=== PATIENT | male | born 1980 | race Caucasian/White ===

== ENCOUNTER 2017-10-08 05:27 | Inpatient (IN) | payer MEDICAID ==
--- NOTE | 2017-10-08 05:38 | EDM.PDOC ---
<Jonathan Woodard - Last Filed: 10/08/17 06:55> ED HPI GENERAL MEDICAL PROBLEM - General Chief Complaint: Lower Extremity Injury/Pain Stated Complaint: [facility] Time Seen by Provider: 10/08/17 05:37 - History of Present Illness INITIAL COMMENTS - FREE TEXT/NARRATIVE: 36-year-old male presents emergency room via EMS not feeling right. He has had a fever that developed this evening. This started after drinking some water the patient works as a DJ and wonders if something was added to his glass of water because immediately after drinking the water he started feeling unusual. Initially he hinted that he had not been feeling well with some flulike symptoms for the last couple of weeks but with further clarification he changes this to the abrupt onset stated above. The patient has a headache neck pain generally achy all over he gets intermittent bouts of cellulitis in his left lower leg this is mildly erythematous and swelling little bit. Patient is a poorly controlled type II diabetic. Left Leg Pain Score (Numeric/FACES): 8 - Related Data Allergies Allergy/AdvReac Type Severity Reaction Status Date / Time oxymetazoline Allergy Hives Verified 10/08/17 05:38 [From Afrin (oxymetazoline)] Review of Systems - Review of Systems Review Of Systems: See Below Constitutional: Reports: Chills, Fever Eyes: Reports: No Symptoms Ears: Reports: No Symptoms Nose: Reports: No Symptoms Mouth/Throat: Reports: No Symptoms Respiratory: Reports: No Symptoms Cardiovascular: Reports: No Symptoms GI/Abdominal: Reports: Nausea Genitourinary: Denies: Dysuria, Hematuria, Painful Urination Musculoskeletal: Reports: Neck Pain. Denies: Foot Pain, Joint Swelling Skin: Reports: Rash (Patient has psoriasis in the has had a several week outbreak on his right hand dorsal aspect) Neurological: Reports: Headache Psychiatric: Reports: Confusion ED EXAM, GENERAL - Physical Exam Exam: See Below Exam Limited By: No Limitations General Appearance: Alert, No Apparent Distress Eye Exam: Bilateral Eye: Normal Inspection Ears: Normal External Exam, Normal Canal, Hearing Grossly Normal Nose: Normal Inspection, Normal Mucosa, No Blood Throat/Mouth: Normal Inspection, Normal Lips, Normal Oropharynx Head: Atraumatic, Normocephalic Neck: Normal Inspection, Supple, Non-Tender, Full Range of Motion, Other (No nuchal rigidity complains of neck pain however) Respiratory/Chest: No Respiratory Distress, Lungs Clear, Normal Breath Sounds, No Accessory Muscle Use Cardiovascular: Normal Peripheral Pulses, Regular Rate, Rhythm, No Murmur GI/Abdominal: Normal Bowel Sounds, Soft, Non-Tender, Other (Morbid obesity) Back Exam: CVA Tenderness (L). No: Normal Inspection, CVA Tenderness (R) Extremities: Other (Lower leg swelling left greater than right) Neurological: Alert, Oriented, Normal Cognition Psychiatric: Normal Affect, Normal Mood Skin Exam: Warm, Dry, Intact, Other (Mild to moderate erythema left lower leg anterior lateral aspect mild warmth associated with this) Lymphatic: No Adenopathy Course - Vital Signs Last Recorded V/S: Last Vital Signs Temp 101.4 F H 10/08/17 08:25 Pulse 114 H 10/08/17 05:32 Resp 18 10/08/17 05:32 BP 121/88 10/08/17 05:32 Pulse Ox 93 L 10/08/17 05:32 - Orders/Labs/Meds Orders: Active Orders 24 hr Category Date Time Status EKG Documentation Completion [RC] STAT Care 10/08/17 05:38 Active Chest 1V Frontal [CR] Stat Exams 10/08/17 05:45 Taken CULTURE BLOOD [BC] Stat Lab 10/08/17 06:35 Received CULTURE BLOOD [BC] Stat Lab 10/08/17 06:50 Received DRUG SCREEN, URINE [URCHEM] Stat Lab 10/08/17 07:14 Ordered Sodium Chloride 0.9% [Normal Saline] 1,000 ml Med 10/08/17 08:12 Active IV ONETIME Sodium Chloride 0.9% [Normal Saline] 4,300 ml Med 10/08/17 08:27 Active IV ONETIME Vancomycin 2 gm Med 10/08/17 08:30 Active Sodium Chloride 0.9% [Normal Saline] 500 ml IV ONETIME Blood Culture x2 Reflex Set [OM.PC] Stat Oth 10/08/17 05:38 Ordered Medication Orders Sodium Chloride (Normal Saline) 1,000 mls @ 1,000 mls/hr IV ONETIME ONE Stop: 10/08/17 09:11 Last Admin: 10/08/17 08:24 Dose: 1,000 mls/hr Vancomycin HCl 2 gm/ Sodium (Chloride) 500 mls @ 250 mls/hr IV ONETIME ONE Stop: 10/08/17 10:29 Last Admin: 10/08/17 08:29 Dose: 250 mls/hr Sodium Chloride (Normal Saline) 4,300 mls @ 1,000 mls/hr IV ONETIME ONE Stop: 10/08/17 12:44 Labs: Laboratory Tests 10/08/17 10/08/17 10/08/17 Range/Units 06:35 06:35 06:35 WBC 21.31 H (4.23-9.07) K/mm3 RBC 4.83 (4.63-6.08) M/mm3 Hgb 13.8 (13.7-17.5) gm/L Hct 40.3 (40.1-51.0) % MCV 83.4 (79.0-92.2) fl MCH 28.6 (25.7-32.2) pg MCHC 34.2 (32.2-35.5) g/dl RDW Std Deviation 40.6 (35.1-43.9) fL Plt Count 200 (163-337) K/mm3 MPV 10.6 (9.4-12.3) fl Neutrophils % (Manual) 88 H (40-60) % Band Neutrophils % 0 (0-10) % Lymphocytes % (Manual) 6 L (20-40) % Atypical Lymphs % 0 % Monocytes % (Manual) 6 (2-10) % Eosinophils % (Manual) 0 L (0.8-7.0) % Basophils % (Manual) 0 L (0.2-1.2) Platelet Estimate Adequate Plt Morphology Comment Normal Polychromasia 1+ slight Stomatocytes 2+ moderate RBC Morph Comment Not Reportable PT 11.3 (9.5-12.1) SECONDS INR 1.04 APTT 27 (24-31) SECONDS D-Dimer, Quantitative (0.19-0.50) mg/L Sodium 132 L (136-145) mEq/L Potassium 3.2 L (3.5-5.1) mEq/L Chloride 97 L (98-107) mEq/L Carbon Dioxide 21 (21-32) mEq/L Anion Gap 17.2 H (5-15) BUN 11 (7-18) mg/dL Creatinine 1.2 (0.7-1.3) mg/dL Est Cr Clr Drug Dosing TNP Estimated GFR (MDRD) > 60 (>60) mL/min BUN/Creatinine Ratio 9.2 L (14-18) Glucose 280 H (74-106) mg/dL Lactic Acid (0.4-2.0) mmol/L Calcium 8.7 (8.5-10.1) mg/dL Total Bilirubin 1.2 H (0.2-1.0) mg/dL AST 24 (15-37) U/L ALT 43 (16-63) U/L Alkaline Phosphatase 49 (46-116) U/L Total Protein 7.2 (6.4-8.2) g/dl Albumin 3.1 L (3.4-5.0) g/dl Globulin 4.1 gm/dL Albumin/Globulin Ratio 0.8 L (1-2) Urine Opiates Screen (NEGATIVE) Ur Buprenorphine Scrn (NEGATIVE) Ur Oxycodone Screen (NEGATIVE) Urine Methadone Screen (NEGATIVE) Ur Propoxyphene Screen (NEGATIVE) Ur Barbiturates Screen (NEGATIVE) Ur Tricyclics Screen (NEGATIVE) Ur Phencyclidine Scrn (NEGATIVE) Ur Amphetamine Screen (NEGATIVE) U Methamphetamines Scrn (NEGATIVE) U Benzodiazepines Scrn (NEGATIVE) U Cocaine Metab Screen (NEGATIVE) U Marijuana (THC) Screen (NEGATIVE) Ethyl Alcohol (0.00) gm% 10/08/17 10/08/17 10/08/17 Range/Units 06:35 06:35 06:35 WBC (4.23-9.07) K/mm3 RBC (4.63-6.08) M/mm3 Hgb (13.7-17.5) gm/L Hct (40.1-51.0) % MCV (79.0-92.2) fl MCH (25.7-32.2) pg MCHC (32.2-35.5) g/dl RDW Std Deviation (35.1-43.9) fL Plt Count (163-337) K/mm3 MPV (9.4-12.3) fl Neutrophils % (Manual) (40-60) % Band Neutrophils % (0-10) % Lymphocytes % (Manual) (20-40) % Atypical Lymphs % % Monocytes % (Manual) (2-10) % Eosinophils % (Manual) (0.8-7.0) % Basophils % (Manual) (0.2-1.2) Platelet Estimate Plt Morphology Comment Polychromasia Stomatocytes RBC Morph Comment PT (9.5-12.1) SECONDS INR APTT (24-31) SECONDS D-Dimer, Quantitative 0.49 (0.19-0.50) mg/L Sodium (136-145) mEq/L Potassium (3.5-5.1) mEq/L Chloride (98-107) mEq/L Carbon Dioxide (21-32) mEq/L Anion Gap (5-15) BUN (7-18) mg/dL Creatinine (0.7-1.3) mg/dL Est Cr Clr Drug Dosing Estimated GFR (MDRD) (>60) mL/min BUN/Creatinine Ratio (14-18) Glucose (74-106) mg/dL Lactic Acid 2.9 H (0.4-2.0) mmol/L Calcium (8.5-10.1) mg/dL Total Bilirubin (0.2-1.0) mg/dL AST (15-37) U/L ALT (16-63) U/L Alkaline Phosphatase (46-116) U/L Total Protein (6.4-8.2) g/dl Albumin (3.4-5.0) g/dl Globulin gm/dL Albumin/Globulin Ratio (1-2) Urine Opiates Screen (NEGATIVE) Ur Buprenorphine Scrn (NEGATIVE) Ur Oxycodone Screen (NEGATIVE) Urine Methadone Screen (NEGATIVE) Ur Propoxyphene Screen (NEGATIVE) Ur Barbiturates Screen (NEGATIVE) Ur Tricyclics Screen (NEGATIVE) Ur Phencyclidine Scrn (NEGATIVE) Ur Amphetamine Screen (NEGATIVE) U Methamphetamines Scrn (NEGATIVE) U Benzodiazepines Scrn (NEGATIVE) U Cocaine Metab Screen (NEGATIVE) U Marijuana (THC) Screen (NEGATIVE) Ethyl Alcohol 0.00 (0.00) gm% 10/08/17 Range/Units 07:14 WBC (4.23-9.07) K/mm3 RBC (4.63-6.08) M/mm3 Hgb (13.7-17.5) gm/L Hct (40.1-51.0) % MCV (79.0-92.2) fl MCH (25.7-32.2) pg MCHC (32.2-35.5) g/dl RDW Std Deviation (35.1-43.9) fL Plt Count (163-337) K/mm3 MPV (9.4-12.3) fl Neutrophils % (Manual) (40-60) % Band Neutrophils % (0-10) % Lymphocytes % (Manual) (20-40) % Atypical Lymphs % % Monocytes % (Manual) (2-10) % Eosinophils % (Manual) (0.8-7.0) % Basophils % (Manual) (0.2-1.2) Platelet Estimate Plt Morphology Comment Polychromasia Stomatocytes RBC Morph Comment PT (9.5-12.1) SECONDS INR APTT (24-31) SECONDS D-Dimer, Quantitative (0.19-0.50) mg/L Sodium (136-145) mEq/L Potassium (3.5-5.1) mEq/L Chloride (98-107) mEq/L Carbon Dioxide (21-32) mEq/L Anion Gap (5-15) BUN (7-18) mg/dL Creatinine (0.7-1.3) mg/dL Est Cr Clr Drug Dosing Estimated GFR (MDRD) (>60) mL/min BUN/Creatinine Ratio (14-18) Glucose (74-106) mg/dL Lactic Acid (0.4-2.0) mmol/L Calcium (8.5-10.1) mg/dL Total Bilirubin (0.2-1.0) mg/dL AST (15-37) U/L ALT (16-63) U/L Alkaline Phosphatase (46-116) U/L Total Protein (6.4-8.2) g/dl Albumin (3.4-5.0) g/dl Globulin gm/dL Albumin/Globulin Ratio (1-2) Urine Opiates Screen Presumptive positive H (NEGATIVE) Ur Buprenorphine Scrn Negative (NEGATIVE) Ur Oxycodone Screen Negative (NEGATIVE) Urine Methadone Screen Negative (NEGATIVE) Ur Propoxyphene Screen Negative (NEGATIVE) Ur Barbiturates Screen Negative (NEGATIVE) Ur Tricyclics Screen Negative (NEGATIVE) Ur Phencyclidine Scrn Negative (NEGATIVE) Ur Amphetamine Screen Negative (NEGATIVE) U Methamphetamines Scrn Negative (NEGATIVE) U Benzodiazepines Scrn Negative (NEGATIVE) U Cocaine Metab Screen Negative (NEGATIVE) U Marijuana (THC) Screen Negative (NEGATIVE) Ethyl Alcohol (0.00) gm% Meds: Medications Generic Name Dose Route Start Last Admin Trade Name Freq PRN Reason Stop Dose Admin Sodium Chloride 1,000 mls @ 1,000 mls/hr 10/08/17 08:12 10/08/17 08:24 Normal Saline IV 10/08/17 09:11 1,000 mls/hr ONETIME ONE Administration Vancomycin HCl 2 gm/ Sodium 500 mls @ 250 mls/hr 10/08/17 08:30 10/08/17 08: 29 Chloride IV 10/08/17 10:29 250 mls/hr ONETIME ONE Administration Sodium Chloride 4,300 mls @ 1,000 mls/hr 10/08/17 08:27 Normal Saline IV 10/08/17 12:44 ONETIME ONE Discontinued Medications Generic Name Dose Route Start Last Admin Trade Name Mino PRN Reason Stop Dose Admin Acetaminophen 975 mg 10/08/17 08:15 10/08/17 08:25 Tylenol PO 10/08/17 08:16 975 mg NOW ONE Administration Vancomycin HCl 2 gm/ Sodium 250 mls @ 250 mls/hr 10/08/17 08:10 Chloride IV 10/08/17 09:09 ONETIME ONE Vancomycin HCl Confirm 10/08/17 08:14 Vancocin Administered 10/08/17 08:15 Dose 2 gm .ROUTE .[facility] ONE - Re-Assessments/Exams Free Text/Narrative Re-Assessment/Exam: 10/08/17 07:14 Labs pending at this point a CBC which shows a white count 21,000. At this point it's change of shift further evaluation and disposition per Departure - Departure Disposition: Admitted As Inpatient 64 Clinical Impression: Cellulitis Qualifiers: Site of cellulitis: extremity Site of cellulitis of extremity: lower extremity Laterality: left Qualified Code(s): L03.116 - Cellulitis of left lower limb Sepsis Qualifiers: Sepsis type: sepsis due to unspecified organism Qualified Code(s): A41.9 - Sepsis, unspecified organism Diabetes mellitus Qualifiers: Diabetes mellitus type: type 2 Diabetes mellitus penitentiary insulin use: without penitentiary use Diabetes mellitus complication status: without complication Qualified Code(s): E11.9 - Type 2 diabetes mellitus without complications - Discharge Information Referrals: PCP,Not In Area [Primary Care Provider] - Forms: ED Department Discharge - My Orders Last 24 Hours: My Active Orders 10/08/17 08:12 Sodium Chloride 0.9% [Normal Saline] 1,000 ml IV ONETIME 10/08/17 08:27 Sodium Chloride 0.9% [Normal Saline] 4,300 ml IV ONETIME 10/08/17 08:30 Vancomycin 2 gm Sodium Chloride 0.9% [Normal Saline] 500 ml IV ONETIME - Assessment/Plan Last 24 Hours: My Active Orders 10/08/17 08:12 Sodium Chloride 0.9% [Normal Saline] 1,000 ml IV ONETIME 10/08/17 08:27 Sodium Chloride 0.9% [Normal Saline] 4,300 ml IV ONETIME 10/08/17 08:30 Vancomycin 2 gm Sodium Chloride 0.9% [Normal Saline] 500 ml IV ONETIME <Alistair Luo - Last Filed: 10/08/17 09:09> Course - Re-Assessments/Exams Free Text/Narrative Re-Assessment/Exam: 10/08/17 08:48 I am taking over for Dr Woodard. The patient's head CT looks good. His CXR looks good. His WBC was elevated to 21.31. His D-dimer is normal. His Na is a little low at 132. His K was low at 3.2. His creatinine was slightly elevated at 1.2. His glucose was elevated at 280. His lactic acid was 2.9. His UDS was positive for opiates. His ETOH is negative. He is septic. We have blood cultures ordered an I ordered vancomycin 2 grams IV. I also ordered 5,300L of NS for a 30mL/kg bolus. I feel he needs to be admitted. I called Dr Trivedi and he agreed to the admission. Departure - Departure Time of Disposition: 09:10 Condition: Fair
--- NOTE | 2017-10-08 07:41 | CT ---
Head CT Technique: Multiple axial sections through the brain were obtained. Intravenous contrast was not utilized. Comparison: No prior intracranial imaging. Findings: Ventricles along with basal cisterns and sulci over the convexities are within normal limits for the patient's age. No abnormal parenchymal densities are seen. No evidence of intracranial hemorrhage. No midline shift or mass effect is seen. Bone window settings were reviewed which shows the visualized sinuses to appear clear. No acute calvarial abnormality is seen. Impression: 1. Nothing acute is identified on noncontrast head CT study. Diagnostic code #1
[2017-10-08] MEDS ORDERED: Sodium Chloride 0.9% 1,000 ML IV ONE (08:12)
[2017-10-08] MEDS ORDERED: Vancomycin 1 GM AdvVial ONE (08:14)
[2017-10-08] MEDS ORDERED: Acetaminophen 325 MG Tab PO ONE (08:15)
[2017-10-08] MEDS ORDERED: Vancomycin 2 GM in Sodium Chloride 0.9% 500 ML IV ONE (08:30)
--- NOTE | 2017-10-08 09:01 | CT ---
CT cervical spine Technique: Multiple axial sections were obtained from above C1 inferiorly to the bottom of T1. Reconstructed sagittal and coronal images were reviewed. Comparison: No previous cervical spine imaging. Findings: Mild degenerative change is noted between the dens and anterior arch of C1. Small calcification with minimal anterior spurring is noted off the anterior disc at C5-6. Posterior skull base is intact. Vertebral bodies and posterior arches are intact with no fracture being seen. No bony central or bony neural foraminal stenosis is seen. No abnormal subluxation is seen on the reconstructed sagittal images. Impression: 1. Mild degenerative change. Nothing acute is seen on CT study of the cervical spine. Diagnostic code #2
--- NOTE | 2017-10-08 09:23 | CR ---
Chest: Portable view of the chest was obtained. Comparison: No prior chest x-ray. Heart size and mediastinum are normal. Lungs are clear with no acute parenchymal densities. Bony structures are unremarkable. Impression: 1. Nothing acute is seen on portable chest x-ray. Diagnostic code #1
[2017-10-08] MEDS: Sodium Chloride 0.9% 1,000 ML IV SCH ×4 (13:57→18:20)
[2017-10-08] MEDS ORDERED: Magnesium Sulfate/Water 4 GM in Premix Bag 1 BAG IV ONE (14:00)
[2017-10-08] MEDS ORDERED: Potassium Chloride 20 MEQ Tab.ER PO ONE (14:00)
[2017-10-08] MEDS ORDERED: Polyethylene Glycol 3350 Powder 17 GM Packet PO PRN (14:25)
[2017-10-08] MEDS ORDERED: Bisacodyl 5 MG Tab PO PRN (14:25)
[2017-10-08] MEDS ORDERED: Morphine 4 MG/ML Syringe IVPUSH PRN (14:25)
[2017-10-08] MEDS ORDERED: Magnesium Hydroxide 400 MG/5 ML Susp 30 ML Cup PO PRN (14:25)
[2017-10-08] MEDS ORDERED: Docusate Sodium 100 MG Cap PO PRN (14:25)
[2017-10-08] MEDS ORDERED: Ondansetron 4 MG Tab.DIS PO PRN (14:25)
[2017-10-08] MEDS ORDERED: Ondansetron 4 MG/2 ML SDV IV PRN (14:25)
[2017-10-08] MEDS ORDERED: Acetaminophen/HYDROcodone 325-5 MG Tab PO PRN (14:25)
[2017-10-08] MEDS: Enoxaparin 40 MG/0.4 ML Syringe SUBCUT SCH (15:49)
--- NOTE | 2017-10-08 16:45 | PCM.HP ---
H&P History of Present Illness - General Date of Service: 10/08/17 Admit Problem/Dx: Admission Diagnosis/Problem Admission Diagnosis/Problem Cellulitis Source of Information: Patient, Provider History Limitations: Reports: No Limitations - History of Present Illness Initial Comments - Free Text/Narative: This is 36 yo male with past medical hx/o HTN, GERD, DM2, sleep apnea, obesity who comes in for left leg cellulitis. Does not complain of leg pain, but does complain of headache and 9/10 neck pain. He reports fever, chills, nausea, diarrhea. No vomiting, blurry vision, recent injuries or other GI/ complaints. His symptoms improved after receiving fluids, antibiotics, anti-nausea medication, and pain medication in the ED. His initial workup in the ED shows a CBC remarkable for WBC 21.31, Neutrophils 88%. His coagulation studies show PT 11.3, INR 1.04, APTT 27, D dimer 0.49. Her chemistry is remarkable for Na 132, K 3.2, Cl 97, Anion Gap 17.2, GLucose 280, Lactic Acid 2.9, Mg 0.9, Bilirubin 1.2, Albumin 3.1. Drug screen was negative except for opiates- was given Dilaudid in ambulance per pt. EtOH negative. Head CT is normal. CXR is normal. He is subsequently admitted to the medical floor. He is a Full code. His PCP is Corona Kwon at [facility] in [place]. Left Leg Pain Score (Numeric/FACES): 4 - Related Data Allergies/Adverse Reactions: Allergies Allergy/AdvReac Type Severity Reaction Status Date / Time oxymetazoline Allergy Hives Verified 10/08/17 05:38 [From Izaiah (oxymetazoline)] Home Medications: Home Meds Escitalopram Oxalate [Lexapro] 10 mg PO DAILY 10/08/17 [History] Lisinopril/Hydrochlorothiazide [Lisinopril-Hctz 20-25 mg Tab] 1 each PO DAILY [History] Omeprazole Magnesium [Prilosec Otc] 20 mg PO DAILY 10/08/17 [History] metFORMIN HCl [Metformin HCl] 1,000 mg PO BID 10/08/17 [History] Past Medical History HEENT History: Reports: Sinusitis Cardiovascular History: Reports: Hypertension Respiratory History: Reports: Sleep Apnea Gastrointestinal History: Reports: GERD, Hiatal Hernia Other Genitourinary History: high protein in urine Musculoskeletal History: Reports: Arthritis, Fracture Neurological History: Reports: Headaches, Chronic Psychiatric History: Reports: Anxiety, Depression Endocrine/Metabolic History: Reports: Diabetes, Type II Dermatologic History: Reports: Cellulitis, Psoriasis - Infectious Disease History Infectious Disease History: Reports: Chicken Pox - Past Surgical History HEENT Surgical History: Reports: Adenoidectomy, Oral Surgery, Tonsillectomy Cardiovascular Surgical History: Reports: None Respiratory Surgical History: Reports: None GI Surgical History: Reports: Hernia, Abdominal, Hernia Repair/Other Male Surgical History: Reports: None Neurological Surgical History: Reports: None Musculoskeletal Surgical History: Reports: Shoulder Surgery, Other (See Below) Other Musculoskeletal Surgeries/Procedures:: ankle surrery Social & Family History - Family History Family Medical History: Noncontributory - Tobacco Use Smoking Status *Q: Never Smoker - Caffeine Use Caffeine Use: Reports: Coffee, Soda - Recreational Drug Use Recreational Drug Use: No H&P Review of Systems - Review of Systems: Review Of Systems: See Below General: Reports: Fever, Chills, Diaphoresis HEENT: Reports: No Symptoms Pulmonary: Reports: No Symptoms, Other (h/o sleep apnea). Denies: Shortness of Breath, Cough Cardiovascular: Reports: Orthopnea, Edema (1+ bilaterally), Blood Pressure Problem (h/o HTN). Denies: Chest Pain, Palpitations Gastrointestinal: Reports: Diarrhea, Nausea. Denies: Abdominal Pain, Vomiting Genitourinary: Reports: No Symptoms Musculoskeletal: Reports: Neck Pain (01/24) Skin: Reports: Dryness, Erythema (left lower leg), Other (bilateral leg peeling from old sunburn) Psychiatric: Reports: No Symptoms. Denies: Confusion Neurological: Reports: Headache. Denies: Confusion, Dizziness, Numbness, Tingling, Trouble Speaking, Difficulty Walking, Weakness, Change in Speech Hematologic/Lymphatic: Reports: No Symptoms Immunologic: Reports: No Symptoms Exam - Exam Exam: See Below - Vital Signs Vital Signs: Last Vital Signs Temp 99.7 F 10/08/17 10:23 Pulse 96 10/08/17 09:48 Resp 16 10/08/17 09:48 BP 128/74 10/08/17 09:48 Pulse Ox 96 10/08/17 14:25 Weight: 411 lb 1.6 oz - Exam Quality Assessment: DVT Prophylaxis. No: Supplemental Oxygen General: Alert, Oriented, Cooperative, Moderate Distress HEENT: PERRLA, Hearing Intact, Mucosa Moist & [place], Nares Patent, Normal Nasal Septum, Posterior Pharynx Clear, Conjunctiva Clear, EOMI, EACs Clear, TMs Clear Neck: Supple, Trachea Midline, 2 Lungs: Clear to Auscultation, Normal Respiratory Effort Cardiovascular: Regular Rate, Regular Rhythm GI/Abdominal Exam: Normal Bowel Sounds, Soft, Non-Tender, No Organomegaly, No Distention, No Abnormal Bruit, No Mass, Pelvis Stable (Male) Exam: Deferred Rectal (Males) Exam: Deferred Back Exam: Normal Inspection, Full Range of Motion, NT Extremities: Normal Range of Motion, Non-Tender, Normal Capillary Refill, Pedal Edema (1+ bilaterally), Increased Warmth (left lower leg), Redness (left lower leg) Peripheral Pulses: 1+: Posterior Tibial (L), Posterior Tibial (R), Dorsalis Pedis (L), Dorsalis Pedis (R) Skin: Warm, Dry, Intact, Other (left leg erythema and peeling bilaterally) Neurological: Cranial Nerves Intact (grossly), Strength Equal Bilateral Neuro Extensive - Mental Status: Alert, Oriented x3, Normal Mood/Affect, Normal Cognition, Memory Intact - Patient Data Lab Results Last 24 hrs: Laboratory Results - last 24 hr 10/08/17 10/08/17 10/08/17 Range/Units 06:35 06:35 06:35 WBC 21.31 H (4.23-9.07) K/mm3 RBC 4.83 (4.63-6.08) M/mm3 Hgb 13.8 (13.7-17.5) gm/L Hct 40.3 (40.1-51.0) % MCV 83.4 (79.0-92.2) fl MCH 28.6 (25.7-32.2) pg MCHC 34.2 (32.2-35.5) g/dl RDW Std Deviation 40.6 (35.1-43.9) fL Plt Count 200 (163-337) K/mm3 MPV 10.6 (9.4-12.3) fl Neutrophils % (Manual) 88 H (40-60) % Band Neutrophils % 0 (0-10) % Lymphocytes % (Manual) 6 L (20-40) % Atypical Lymphs % 0 % Monocytes % (Manual) 6 (2-10) % Eosinophils % (Manual) 0 L (0.8-7.0) % Basophils % (Manual) 0 L (0.2-1.2) Platelet Estimate Adequate Plt Morphology Comment Normal Polychromasia 1+ slight Stomatocytes 2+ moderate RBC Morph Comment Not Reportable PT 11.3 (9.5-12.1) SECONDS INR 1.04 APTT 27 (24-31) SECONDS D-Dimer, Quantitative (0.19-0.50) mg/L Sodium 132 L (136-145) mEq/L Potassium 3.2 L (3.5-5.1) mEq/L Chloride 97 L (98-107) mEq/L Carbon Dioxide 21 (21-32) mEq/L Anion Gap 17.2 H (5-15) BUN 11 (7-18) mg/dL Creatinine 1.2 (0.7-1.3) mg/dL Est Cr Clr Drug Dosing TNP Estimated GFR (MDRD) > 60 (>60) mL/min BUN/Creatinine Ratio 9.2 L (14-18) Glucose 280 H (74-106) mg/dL Lactic Acid (0.4-2.0) mmol/L Calcium 8.7 (8.5-10.1) mg/dL Magnesium (1.8-2.4) mg/dl Total Bilirubin 1.2 H (0.2-1.0) mg/dL AST 24 (15-37) U/L ALT 43 (16-63) U/L Alkaline Phosphatase 49 (46-116) U/L Total Protein 7.2 (6.4-8.2) g/dl Albumin 3.1 L (3.4-5.0) g/dl Globulin 4.1 gm/dL Albumin/Globulin Ratio 0.8 L (1-2) Urine Color (Yellow) Urine Appearance (Clear) Urine pH (5.0-8.0) Ur Specific Grady (1.005-1.030) Urine Protein (Negative) Urine Glucose (UA) (Negative) Urine Ketones (Negative) Urine Occult Blood (Negative) Urine Nitrite (Negative) Urine Bilirubin (Negative) Urine Urobilinogen (0.2-1.0) Ur Leukocyte Esterase (Negative) Urine RBC (0-5) /hpf Urine WBC (0-5) /hpf Urine WBC Clumps (NOT SEEN) /hpf Ur Epithelial Cells (0-5) /hpf Amorphous Sediment (NOT SEEN) /hpf Urine Bacteria (FEW) /hpf Urine Mucus (FEW) /hpf Ur Random Microalbumin (1.3-20.0) mg/L Urine Opiates Screen (NEGATIVE) Ur Buprenorphine Scrn (NEGATIVE) Ur Oxycodone Screen (NEGATIVE) Urine Methadone Screen (NEGATIVE) Ur Propoxyphene Screen (NEGATIVE) Ur Barbiturates Screen (NEGATIVE) Ur Tricyclics Screen (NEGATIVE) Ur Phencyclidine Scrn (NEGATIVE) Ur Amphetamine Screen (NEGATIVE) U Methamphetamines Scrn (NEGATIVE) U Benzodiazepines Scrn (NEGATIVE) U Cocaine Metab Screen (NEGATIVE) U Marijuana (THC) Screen (NEGATIVE) Ethyl Alcohol (0.00) gm% Ketones (0.0-0.3) mM MRSA (PCR) 10/08/17 10/08/17 10/08/17 Range/Units 06:35 06:35 06:35 WBC (4.23-9.07) K/mm3 RBC (4.63-6.08) M/mm3 Hgb (13.7-17.5) gm/L Hct (40.1-51.0) % MCV (79.0-92.2) fl MCH (25.7-32.2) pg MCHC (32.2-35.5) g/dl RDW Std Deviation (35.1-43.9) fL Plt Count (163-337) K/mm3 MPV (9.4-12.3) fl Neutrophils % (Manual) (40-60) % Band Neutrophils % (0-10) % Lymphocytes % (Manual) (20-40) % Atypical Lymphs % % Monocytes % (Manual) (2-10) % Eosinophils % (Manual) (0.8-7.0) % Basophils % (Manual) (0.2-1.2) Platelet Estimate Plt Morphology Comment Polychromasia Stomatocytes RBC Morph Comment PT (9.5-12.1) SECONDS INR APTT (24-31) SECONDS D-Dimer, Quantitative 0.49 (0.19-0.50) mg/L Sodium (136-145) mEq/L Potassium (3.5-5.1) mEq/L Chloride (98-107) mEq/L Carbon Dioxide (21-32) mEq/L Anion Gap (5-15) BUN (7-18) mg/dL Creatinine (0.7-1.3) mg/dL Est Cr Clr Drug Dosing Estimated GFR (MDRD) (>60) mL/min BUN/Creatinine Ratio (14-18) Glucose (74-106) mg/dL Lactic Acid 2.9 H (0.4-2.0) mmol/L Calcium (8.5-10.1) mg/dL Magnesium (1.8-2.4) mg/dl Total Bilirubin (0.2-1.0) mg/dL AST (15-37) U/L ALT (16-63) U/L Alkaline Phosphatase (46-116) U/L Total Protein (6.4-8.2) g/dl Albumin (3.4-5.0) g/dl Globulin gm/dL Albumin/Globulin Ratio (1-2) Urine Color (Yellow) Urine Appearance (Clear) Urine pH (5.0-8.0) Ur Specific Grady (1.005-1.030) Urine Protein (Negative) Urine Glucose (UA) (Negative) Urine Ketones (Negative) Urine Occult Blood (Negative) Urine Nitrite (Negative) Urine Bilirubin (Negative) Urine Urobilinogen (0.2-1.0) Ur Leukocyte Esterase (Negative) Urine RBC (0-5) /hpf Urine WBC (0-5) /hpf Urine WBC Clumps (NOT SEEN) /hpf Ur Epithelial Cells (0-5) /hpf Amorphous Sediment (NOT SEEN) /hpf Urine Bacteria (FEW) /hpf Urine Mucus (FEW) /hpf Ur Random Microalbumin (1.3-20.0) mg/L Urine Opiates Screen (NEGATIVE) Ur Buprenorphine Scrn (NEGATIVE) Ur Oxycodone Screen (NEGATIVE) Urine Methadone Screen (NEGATIVE) Ur Propoxyphene Screen (NEGATIVE) Ur Barbiturates Screen (NEGATIVE) Ur Tricyclics Screen (NEGATIVE) Ur Phencyclidine Scrn (NEGATIVE) Ur Amphetamine Screen (NEGATIVE) U Methamphetamines Scrn (NEGATIVE) U Benzodiazepines Scrn (NEGATIVE) U Cocaine Metab Screen (NEGATIVE) U Marijuana (THC) Screen (NEGATIVE) Ethyl Alcohol 0.00 (0.00) gm% Ketones (0.0-0.3) mM MRSA (PCR) 10/08/17 10/08/17 10/08/17 Range/Units 07:14 07:14 08:30 WBC (4.23-9.07) K/mm3 RBC (4.63-6.08) M/mm3 Hgb (13.7-17.5) gm/L Hct (40.1-51.0) % MCV (79.0-92.2) fl MCH (25.7-32.2) pg MCHC (32.2-35.5) g/dl RDW Std Deviation (35.1-43.9) fL Plt Count (163-337) K/mm3 MPV (9.4-12.3) fl Neutrophils % (Manual) (40-60) % Band Neutrophils % (0-10) % Lymphocytes % (Manual) (20-40) % Atypical Lymphs % % Monocytes % (Manual) (2-10) % Eosinophils % (Manual) (0.8-7.0) % Basophils % (Manual) (0.2-1.2) Platelet Estimate Plt Morphology Comment Polychromasia Stomatocytes RBC Morph Comment PT (9.5-12.1) SECONDS INR APTT (24-31) SECONDS D-Dimer, Quantitative (0.19-0.50) mg/L Sodium (136-145) mEq/L Potassium (3.5-5.1) mEq/L Chloride (98-107) mEq/L Carbon Dioxide (21-32) mEq/L Anion Gap (5-15) BUN (7-18) mg/dL Creatinine (0.7-1.3) mg/dL Est Cr Clr Drug Dosing Estimated GFR (MDRD) (>60) mL/min BUN/Creatinine Ratio (14-18) Glucose (74-106) mg/dL Lactic Acid (0.4-2.0) mmol/L Calcium (8.5-10.1) mg/dL Magnesium 0.9 L (1.8-2.4) mg/dl Total Bilirubin (0.2-1.0) mg/dL AST (15-37) U/L ALT (16-63) U/L Alkaline Phosphatase (46-116) U/L Total Protein (6.4-8.2) g/dl Albumin (3.4-5.0) g/dl Globulin gm/dL Albumin/Globulin Ratio (1-2) Urine Color Erica H (Yellow) Urine Appearance Turbid H (Clear) Urine pH 5.5 (5.0-8.0) Ur Specific [place]ady > or = 1.030 (1.005-1.030) Urine Protein 2+ H (Negative) Urine Glucose (UA) 2+ H (Negative) Urine Ketones Trace H (Negative) Urine Occult Blood Negative (Negative) Urine Nitrite Negative (Negative) Urine Bilirubin Negative (Negative) Urine Urobilinogen 0.2 (0.2-1.0) Ur Leukocyte Esterase Negative (Negative) Urine RBC Not seen (0-5) /hpf Urine WBC 0-5 (0-5) /hpf Urine WBC Clumps Not seen (NOT SEEN) /hpf Ur Epithelial Cells 0-5 (0-5) /hpf Amorphous Sediment Many H (NOT SEEN) /hpf Urine Bacteria Moderate H (FEW) /hpf Urine Mucus Few (FEW) /hpf Ur Random Microalbumin (1.3-20.0) mg/L Urine Opiates Screen Presumptive positive H (NEGATIVE) Ur Buprenorphine Scrn Negative (NEGATIVE) Ur Oxycodone Screen Negative (NEGATIVE) Urine Methadone Screen Negative (NEGATIVE) Ur Propoxyphene Screen Negative (NEGATIVE) Ur Barbiturates Screen Negative (NEGATIVE) Ur Tricyclics Screen Negative (NEGATIVE) Ur Phencyclidine Scrn Negative (NEGATIVE) Ur Amphetamine Screen Negative (NEGATIVE) U Methamphetamines Scrn Negative (NEGATIVE) U Benzodiazepines Scrn Negative (NEGATIVE) U Cocaine Metab Screen Negative (NEGATIVE) U Marijuana (THC) Screen Negative (NEGATIVE) Ethyl Alcohol (0.00) gm% Ketones (0.0-0.3) mM MRSA (PCR) 10/08/17 10/08/17 10/08/17 Range/Units 09:05 10:48 13:54 WBC (4.23-9.07) K/mm3 RBC (4.63-6.08) M/mm3 Hgb (13.7-17.5) gm/L Hct (40.1-51.0) % MCV (79.0-92.2) fl MCH (25.7-32.2) pg MCHC (32.2-35.5) g/dl RDW Std Deviation (35.1-43.9) fL Plt Count (163-337) K/mm3 MPV (9.4-12.3) fl Neutrophils % (Manual) (40-60) % Band Neutrophils % (0-10) % Lymphocytes % (Manual) (20-40) % Atypical Lymphs % % Monocytes % (Manual) (2-10) % Eosinophils % (Manual) (0.8-7.0) % Basophils % (Manual) (0.2-1.2) Platelet Estimate Plt Morphology Comment Polychromasia Stomatocytes RBC Morph Comment PT (9.5-12.1) SECONDS INR APTT (24-31) SECONDS D-Dimer, Quantitative (0.19-0.50) mg/L Sodium (136-145) mEq/L Potassium (3.5-5.1) mEq/L Chloride (98-107) mEq/L Carbon Dioxide (21-32) mEq/L Anion Gap (5-15) BUN (7-18) mg/dL Creatinine (0.7-1.3) mg/dL Est Cr Clr Drug Dosing Estimated GFR (MDRD) (>60) mL/min BUN/Creatinine Ratio (14-18) Glucose (74-106) mg/dL Lactic Acid 1.8 (0.4-2.0) mmol/L Calcium (8.5-10.1) mg/dL Magnesium (1.8-2.4) mg/dl Total Bilirubin (0.2-1.0) mg/dL AST (15-37) U/L ALT (16-63) U/L Alkaline Phosphatase (46-116) U/L Total Protein (6.4-8.2) g/dl Albumin (3.4-5.0) g/dl Globulin gm/dL Albumin/Globulin Ratio (1-2) Urine Color (Yellow) Urine Appearance (Clear) Urine pH (5.0-8.0) Ur Specific [place] (1.005-1.030) Urine Protein (Negative) Urine Glucose (UA) (Negative) Urine Ketones (Negative) Urine Occult Blood (Negative) Urine Nitrite (Negative) Urine Bilirubin (Negative) Urine Urobilinogen (0.2-1.0) Ur Leukocyte Esterase (Negative) Urine RBC (0-5) /hpf Urine WBC (0-5) /hpf Urine WBC Clumps (NOT SEEN) /hpf Ur Epithelial Cells (0-5) /hpf Amorphous Sediment (NOT SEEN) /hpf Urine Bacteria (FEW) /hpf Urine Mucus (FEW) /hpf Ur Random Microalbumin 806.4 H (1.3-20.0) mg/L Urine Opiates Screen (NEGATIVE) Ur Buprenorphine Scrn (NEGATIVE) Ur Oxycodone Screen (NEGATIVE) Urine Methadone Screen (NEGATIVE) Ur Propoxyphene Screen (NEGATIVE) Ur Barbiturates Screen (NEGATIVE) Ur Tricyclics Screen (NEGATIVE) Ur Phencyclidine Scrn (NEGATIVE) Ur Amphetamine Screen (NEGATIVE) U Methamphetamines Scrn (NEGATIVE) U Benzodiazepines Scrn (NEGATIVE) U Cocaine Metab Screen (NEGATIVE) U Marijuana (THC) Screen (NEGATIVE) Ethyl Alcohol (0.00) gm% Ketones (0.0-0.3) mM MRSA (PCR) Negative 10/08/17 Range/Units 13:54 WBC (4.23-9.07) K/mm3 RBC (4.63-6.08) M/mm3 Hgb (13.7-17.5) gm/L Hct (40.1-51.0) % MCV (79.0-92.2) fl MCH (25.7-32.2) pg MCHC (32.2-35.5) g/dl RDW Std Deviation (35.1-43.9) fL Plt Count (163-337) K/mm3 MPV (9.4-12.3) fl Neutrophils % (Manual) (40-60) % Band Neutrophils % (0-10) % Lymphocytes % (Manual) (20-40) % Atypical Lymphs % % Monocytes % (Manual) (2-10) % Eosinophils % (Manual) (0.8-7.0) % Basophils % (Manual) (0.2-1.2) Platelet Estimate Plt Morphology Comment Polychromasia Stomatocytes RBC Morph Comment PT (9.5-12.1) SECONDS INR APTT (24-31) SECONDS D-Dimer, Quantitative (0.19-0.50) mg/L Sodium (136-145) mEq/L Potassium (3.5-5.1) mEq/L Chloride (98-107) mEq/L Carbon Dioxide (21-32) mEq/L Anion Gap (5-15) BUN (7-18) mg/dL Creatinine (0.7-1.3) mg/dL Est Cr Clr Drug Dosing Estimated GFR (MDRD) (>60) mL/min BUN/Creatinine Ratio (14-18) Glucose (74-106) mg/dL Lactic Acid (0.4-2.0) mmol/L Calcium (8.5-10.1) mg/dL Magnesium (1.8-2.4) mg/dl Total Bilirubin (0.2-1.0) mg/dL AST (15-37) U/L ALT (16-63) U/L Alkaline Phosphatase (46-116) U/L Total Protein (6.4-8.2) g/dl Albumin (3.4-5.0) g/dl Globulin gm/dL Albumin/Globulin Ratio (1-2) Urine Color (Yellow) Urine Appearance (Clear) Urine pH (5.0-8.0) Ur Specific Grady (1.005-1.030) Urine Protein (Negative) Urine Glucose (UA) (Negative) Urine Ketones (Negative) Urine Occult Blood (Negative) Urine Nitrite (Negative) Urine Bilirubin (Negative) Urine Urobilinogen (0.2-1.0) Ur Leukocyte Esterase (Negative) Urine RBC (0-5) /hpf Urine WBC (0-5) /hpf Urine WBC Clumps (NOT SEEN) /hpf Ur Epithelial Cells (0-5) /hpf Amorphous Sediment (NOT SEEN) /hpf Urine Bacteria (FEW) /hpf Urine Mucus (FEW) /hpf Ur Random Microalbumin (1.3-20.0) mg/L Urine Opiates Screen (NEGATIVE) Ur Buprenorphine Scrn (NEGATIVE) Ur Oxycodone Screen (NEGATIVE) Urine Methadone Screen (NEGATIVE) Ur Propoxyphene Screen (NEGATIVE) Ur Barbiturates Screen (NEGATIVE) Ur Tricyclics Screen (NEGATIVE) Ur Phencyclidine Scrn (NEGATIVE) Ur Amphetamine Screen (NEGATIVE) U Methamphetamines Scrn (NEGATIVE) U Benzodiazepines Scrn (NEGATIVE) U Cocaine Metab Screen (NEGATIVE) U Marijuana (THC) Screen (NEGATIVE) Ethyl Alcohol (0.00) gm% Ketones 0.08 (0.0-0.3) mM MRSA (PCR) Result Diagrams: 10/08/17 06:35 10/08/17 06:35 - Problem List (1) HTN (hypertension) SNOMED Code(s): 81851009 ICD Code: I10 - ESSENTIAL (PRIMARY) HYPERTENSION Status: Chronic Priority : Medium Current Visit: No Qualifiers: Hypertension type: unspecified Qualified Code(s): I10 - Essential (primary ) hypertension (2) Sleep apnea SNOMED Code(s): 87901079 ICD Code: G47.30 - SLEEP APNEA, UNSPECIFIED Status: Chronic Priority: Low Current Visit: No Qualifiers: Sleep apnea type: unspecified type Qualified Code(s): G47.30 - Sleep apnea , unspecified (3) Headache SNOMED Code(s): 05273227 ICD Code: R51 - HEADACHE Status: Acute Priority: High Current Visit: Yes Qualifiers: Headache type: tension-type Headache chronicity pattern: acute headache Intractability: not intractable Qualified Code(s): G44.209 - Tension-type headache, unspecified, not intractable (4) Neck pain on left side SNOMED Code(s): 59232730 ICD Code: M54.2 - CERVICALGIA Status: Acute Priority: Medium Current Visit: Yes (5) Cellulitis SNOMED Code(s): 747916278 ICD Code: L03.90 - CELLULITIS, UNSPECIFIED Status: Acute Priority: High Current Visit: Yes Qualifiers: Site of cellulitis: extremity Site of cellulitis of extremity: lower extremity Laterality: left Qualified Code(s): L03.116 - Cellulitis of left lower limb (6) Diabetes mellitus SNOMED Code(s): 63655641 ICD Code: E11.9 - TYPE 2 DIABETES MELLITUS WITHOUT COMPLICATIONS Status: Chronic Priority: Medium Current Visit: Yes Qualifiers: Diabetes mellitus type: type 2 Diabetes mellitus terminal operations manager insulin use: without jail use Diabetes mellitus complication status: with kidney complications Diabetes mellitus complication detail: with microalbuminuria Qualified Code(s): E11.29 - Type 2 diabetes mellitus with other diabetic kidney complication; R80.9 - Proteinuria, unspecified (7) Sepsis SNOMED Code(s): 74111480 ICD Code: A41.9 - SEPSIS, UNSPECIFIED ORGANISM Status: Acute Priority: High Current Visit: Yes Qualifiers: Sepsis type: sepsis due to unspecified organism Qualified Code(s): A41.9 - Sepsis, unspecified organism (8) Electrolyte abnormality SNOMED Code(s): 267812475 ICD Code: E87.8 - OTH DISORDERS OF ELECTROLYTE AND FLUID BALANCE, NEC Status: Acute Priority: High Current Visit: Yes Problem List Initiated/Reviewed/Updated: Yes Orders Last 24hrs: Active Orders 24 hr Category Date Time Status Patient Status [ADT] Routine ADT 10/08/17 09:22 Active Ambulate [RC] ASDIRECTED Care 10/08/17 14:25 Active Blood Glucose Check, Bedside [RC] WITHMEALSANDBED Care 10/08/17 14:25 Active Cardiac Monitoring [RC] INTERMITTENT Care 10/08/17 14:40 Active Diabetes Education [RC] Click to Edit Care 10/08/17 15:00 Active Height and Weight [RC] DAILY Care 10/08/17 14:25 Active Intake and Output [RC] QSHIFT Care 10/08/17 14:40 Active May Shower [RC] ASDIRECTED Care 10/08/17 14:25 Active Oxygen Therapy [RC] PRN Care 10/08/17 14:25 Active Pulse Oximetry [RC] PRN Care 10/08/17 14:40 Active VTE/DVT Education [RC] Care 10/08/17 14:25 Active Vital Signs [RC] Q4HR Care 10/08/17 14:25 Active Wound Care [RC] DAILY Care 10/08/17 16:36 Ordered Consult to Diabetic Nurse Specialist [CONS] Routine Cons 10/08/17 14:25 Active Consult to Cabinet Builder [CONS] Routine Cons 10/08/17 14:25 Active Consult to Spiritual Care [CONS] Routine Cons 10/08/17 14:25 Active PT Evaluation and Treatment [CONS] Routine Cons 10/08/17 14:25 Active ADA Diabetic [[place] [employer] Diet] [DIET Diet 10/08/17 Breakfast Active ] ADA Diabetic [[place] [employer] Diet] [DIET Diet 10/08/17 Dinner Active ] A1C [GLYCOSYLATED HEMOGLOBIN,HGBA1C] [CHEM] AM Lab 10/09/17 05:11 Ordered BASIC METABOLIC PANEL,BMP [CHEM] AM Lab 10/09/17 05:11 Ordered BASIC METABOLIC PANEL,BMP [CHEM] AM Lab 10/10/17 05:11 Ordered BASIC METABOLIC PANEL,BMP [CHEM] AM Lab 10/11/17 05:11 Ordered BASIC METABOLIC PANEL,BMP [CHEM] AM Lab 10/12/17 05:11 Ordered BASIC METABOLIC PANEL,BMP [CHEM] AM Lab 10/13/17 05:11 Ordered C-REACTIVE PROTEIN [CHEM] AM Lab 10/09/17 05:11 Ordered C-REACTIVE PROTEIN [CHEM] AM Lab 10/10/17 05:11 Ordered C-REACTIVE PROTEIN [CHEM] AM Lab 10/11/17 05:11 Ordered C-REACTIVE PROTEIN [CHEM] AM Lab 10/12/17 05:11 Ordered C-REACTIVE PROTEIN [CHEM] AM Lab 10/13/17 05:11 Ordered CBC WITH AUTO DIFF [HEME] AM Lab 10/09/17 05:11 Ordered CBC WITH AUTO DIFF [HEME] AM Lab 10/10/17 05:11 Ordered CBC WITH AUTO DIFF [HEME] AM Lab 10/11/17 05:11 Ordered CBC WITH AUTO DIFF [HEME] AM Lab 10/12/17 05:11 Ordered CBC WITH AUTO DIFF [HEME] AM Lab 10/13/17 05:11 Ordered CULTURE BLOOD [BC] Routine Lab 10/10/17 05:11 Ordered CULTURE BLOOD [BC] Stat Lab 10/08/17 06:35 Received CULTURE BLOOD [BC] Stat Lab 10/08/17 06:50 Received DRUG SCREEN, URINE [URCHEM] Stat Lab 10/08/17 07:14 Ordered LIPID PANEL [CHEM] AM Lab 10/09/17 05:11 Ordered MAGNESIUM [CHEM] AM Lab 10/09/17 05:11 Ordered MAGNESIUM [CHEM] AM Lab 10/10/17 05:11 Ordered MAGNESIUM [CHEM] AM Lab 10/11/17 05:11 Ordered MAGNESIUM [CHEM] AM Lab 10/12/17 05:11 Ordered MAGNESIUM [CHEM] AM Lab 10/13/17 05:11 Ordered METH-RESIST S.AUR,MRSA BY PCR [MOLEC] Routine Lab 10/08/17 10:48 Ordered MICROALBUMIN,URINE RANDOM [URCHEM] Stat Lab 10/08/17 09:05 Ordered T4 FREE [CHEM] AM Lab 10/09/17 05:11 Ordered TSH [CHEM] AM Lab 10/09/17 05:11 Ordered Acetaminophen [Tylenol] Med 10/08/17 14:25 Active 650 mg PO Q4H PRN Acetaminophen/HYDROcodone [[place] 325-5 MG] Med 10/08/17 14:25 Active 1 tab PO Q4H PRN Bisacodyl [Dulcolax] Med 10/08/17 14:25 Active 5 mg PO DAILY PRN Citalopram [Celexa] Med 10/09/17 09:00 Active 40 mg PO DAILY Docusate Sodium [Colace] Med 10/08/17 14:25 Active 100 mg PO BID PRN Docusate Sodium/Sennosides [Senna Plus] Med 10/08/17 14:25 Active 1 tab PO BID PRN Enoxaparin [Lovenox] Med 10/08/17 14:30 Active 40 mg SUBCUT DAILY Ibuprofen [Motrin] Med 10/08/17 16:38 Once 500 mg PO ONETIME ONE Insulin Aspart [NovoLOG] Med 10/08/17 17:00 Active See Protocol SUBCUT QIDACANDBED Lisinopril [Prinivil] Med 10/09/17 09:00 Active 20 mg PO DAILY Magnesium Hydroxide [Milk of Magnesia] Med 10/08/17 14:25 Active 30 ml PO Q12H PRN Magnesium Rep Pharmacy to Dose [Pharmacy to Dose - Med 10/08/17 14:00 Active Magnesium Replacement] 0 dose .XX ASDIRECTED PRN Magnesium Sulfate/Water [Magnesium Sulfate 4 GM in Med 10/08/17 14:00 Active Water 100 ML] 4 gm Premix Bag 1 bag IV ONETIME Morphine Med 10/08/17 14:25 Active 2 mg IVPUSH Q2H PRN Ondansetron [Zofran ODT] Med 10/08/17 14:25 Active 4 mg PO Q4H PRN Ondansetron [Zofran] Med 10/08/17 14:25 Active 4 mg IV Q4H PRN Pantoprazole [ProTONIX IV] Med 10/08/17 16:00 Active 40 mg IVPUSH DAILY Polyethylene Glycol 3350 [MiraLAX] Med 10/08/17 14:25 Active 17 gm PO DAILY PRN Potassium Rep Pharmacy to Dose [Pharmacy to Dose - Med 10/08/17 13:30 Active Potassium Replacement] 0 dose .XX ASDIRECTED PRN Sodium Chloride 0.9% [Normal Saline] 1,000 ml Med 10/08/17 13:45 Active IV Q1H Temazepam [Restoril] Med 10/08/17 21:00 Active 7.5 mg PO BEDTIME PRN Vancomycin Pharmacy to Dose [Pharmacy to Dose - Med 10/08/17 16:45 Ordered Vancomycin] 1 dose .XX ASDIRECTED metFORMIN [Glucophage] Med 10/08/17 17:00 Active 1,000 mg PO BIDMEALS Blood Culture x2 Reflex Set [OM.PC] AM Oth 10/10/17 05:11 Ordered Blood Culture x2 Reflex Set [OM.PC] Stat Ot 10/08/17 05:38 Ordered Glucose Management Sub Q Reflex [OM.PC] Click To Edit Ot 10/08/17 14:59 Ordered Wound Care Education [Wound Management Education] [OM. Ot 10/08/17 16:36 Ordered PC] Routine Code Status [Resuscitation Status] Routine Resus Stat 10/08/17 16:37 Ordered Medication Orders Acetaminophen (Tylenol) 650 mg PO Q4H PRN PRN Reason: Pain (Mild 1-3)/fever Hydrocodone Bitart/Acetaminophen ([place] 325-5 Mg) 1 tab PO Q4H PRN PRN Reason: Pain (moderate 4-6) Bisacodyl (Dulcolax) 5 mg PO DAILY PRN PRN Reason: Constipation Citalopram Hydrobromide (Celexa) 40 mg PO DAILY [facility] Docusate Sodium (Colace) 100 mg PO BID PRN PRN Reason: Constipation Enoxaparin Sodium (Lovenox) 40 mg SUBCUT DAILY [facility] Last Admin: 10/08/17 15:49 Dose: 40 mg Sodium Chloride (Normal Saline) 1,000 mls @ 999 mls/hr IV Q1H [facility] Stop: 10/08/17 17:44 Last Admin: 10/08/17 15:47 Dose: 999 mls/hr Infusion: 10/08/17 14:58 Dose: 999 mls/hr Admin: 10/08/17 13:57 Dose: 999 mls/hr Magnesium Sulfate 4 gm/ Premix 100 mls @ 25 mls/hr IV ONETIME ONE Stop: 10/08/17 17:59 Insulin Aspart (Novolog) 0 unit SUBCUT QIDACANDBED [facility]; Protocol Lisinopril (Prinivil) 20 mg PO DAILY [facility] Magnesium Hydroxide (Milk Of Magnesia) 30 ml PO Q12H PRN PRN Reason: Constipation Magnesium Sulfate (Pharmacy To Dose - Magnesium Replacement) 0 dose .XX ASDIRECTED PRN PRN Reason: RX TO WATCH MAG LEVELS Metformin HCl (Glucophage) 1,000 mg PO BIDMEALS [facility] Morphine Sulfate (Morphine) 2 mg IVPUSH Q2H PRN PRN Reason: Pain (severe 7-10) Stop: 10/09/17 14:30 Ondansetron HCl (Zofran Odt) 4 mg PO Q4H PRN PRN Reason: nausea, able to take PO Ondansetron HCl (Zofran) 4 mg IV Q4H PRN PRN Reason: Nausea/Vomiting Pantoprazole Sodium (Protonix Iv) 40 mg IVPUSH DAILY [facility] Polyethylene Glycol (Miralax) 17 gm PO DAILY PRN PRN Reason: Constipation Potassium Chloride (Pharmacy To Dose - Potassium Replacement) 0 dose .XX ASDIRECTED PRN PRN Reason: RX TO WATCH K LEVELS Senna/Docusate Sodium (Senna Plus) 1 tab PO BID PRN PRN Reason: Constipation Temazepam (Restoril) 7.5 mg PO BEDTIME PRN PRN Reason: Sleep Vancomycin HCl (Pharmacy To Dose - Vancomycin) 1 dose .XX ASDIRECTED [facility] Assessment/Plan Comment:: I/P: Cellulitis of Left Lower leg -Risk factors: h/o of chronic cellulitis of left leg (annually since 2006), Uncontrolled DM2 -Fever 101.4, Tachycardia 114, Tachypnea 18, WBC 21.31 -Vanco and IVF in ED--> continue -Lactid Acid 2.9-->1.8 -Sepsis work up -Monitor Tension Headache/Neck pain -Risk factors: h/o of this type of STACK before -9/10 pain, Nausea; Denies aura, sensitivity to light -States it is behind his head and on the left side of his neck -CT head in ED--> no acute abnormalities -PT evaluation--> Recommend outpt PT -Pain medication PRN Electrolyte Abnormalities -Mg 0.9, K 3.2 -Replenish as needed Chronic: DM2 with Microalbuminuria -Urine Microalbumin 806.4, eGFR >60 -Glucose 280 in ED -Monitor Glucose QID -Order A1C -Insulin sliding scale PRN -Continue at home Metformin -ADA diet -IVF -F/U with PCP HTN--> Continue at home Lisinopril and HCTZ Depression--> continue at home Lexapro GERD Plan: Transfered to [facility] today He remains stable and continues to improve clinically Other orders as indicated above Routine AM labs ADA diet DVT Prophylaxis: Lovenox GI Prophylaxis: Protonix Ambulated as tolerated Code Status:Full Code; PCP: Corona Kwon at [facility] in [place]
[2017-10-08] MEDS: Pantoprazole 40 MG Vial IVPUSH SCH (16:48)
[2017-10-08] MEDS ORDERED: Vancomycin 2 GM in Sodium Chloride 0.9% 500 ML IV SCH (17:00)
[2017-10-08] MEDS ORDERED: Ibuprofen 400 MG Tab PO ONE (17:00)
[2017-10-08] MEDS: metFORMIN 500 MG Tab PO SCH (17:27)
[2017-10-08] MEDS: Saccharomyces Boulardii (Probiotic) 250 MG Cap PO SCH ×2 (17:27→20:56)
[2017-10-08] MEDS: Insulin Aspart 100 Units/ML 3 ML Pen SUBCUT SCH ×3 (17:29→22:06)
[2017-10-08] MEDS: Vancomycin 2 GM in Sodium Chloride 0.9% 500 ML IV SCH (20:56)
[2017-10-08] MEDS ORDERED: Temazepam 7.5 MG Cap PO PRN (21:00)
[2017-10-09] MEDS: Sodium Chloride 0.9% 1,000 ML IV SCH ×2 (02:09→10:24)
[2017-10-09] MEDS: Acetaminophen/Butalbital/Caffeine 325-50-40 MG Tab PO PRN (02:16)
[2017-10-09] MEDS: metFORMIN 500 MG Tab PO SCH ×2 (07:18→17:39)
[2017-10-09] MEDS: Citalopram 20 MG Tab PO SCH (08:06)
[2017-10-09] MEDS: Lisinopril 20 MG Tab PO SCH (08:07)
[2017-10-09] MEDS: Hydrochlorothiazide 25 MG Tab PO SCH (08:08)
[2017-10-09] MEDS: Saccharomyces Boulardii (Probiotic) 250 MG Cap PO SCH ×2 (08:09→21:01)
[2017-10-09] MEDS: Insulin Aspart 100 Units/ML 3 ML Pen SUBCUT SCH ×4 (08:09→21:02)
[2017-10-09] MEDS: Enoxaparin 40 MG/0.4 ML Syringe SUBCUT SCH (08:10)
[2017-10-09] MEDS: Pantoprazole 40 MG Vial IVPUSH SCH (08:11)
[2017-10-09] MEDS ORDERED: Lisinopril 20 MG Tab PO SCH (09:00)
[2017-10-09] MEDS: Vancomycin 2 GM in Sodium Chloride 0.9% 500 ML IV SCH ×2 (09:16→17:40)
--- NOTE | 2017-10-09 10:14 | PCM.PN ---
- General Info Date of Service: 10/09/17 Functional Status: Reports: Pain Controlled, Tolerating Diet, Ambulating, Urinating - Review of Systems General: Reports: No Symptoms HEENT: Reports: No Symptoms Pulmonary: Reports: No Symptoms Cardiovascular: Reports: No Symptoms Gastrointestinal: Reports: No Symptoms Genitourinary: Reports: No Symptoms Musculoskeletal: Reports: No Symptoms Skin: Reports: Dryness, Other (redness) Neurological: Reports: No Symptoms Psychiatric: Reports: No Symptoms - Patient Data Vitals - Most Recent: Last Vital Signs Temp 37.4 C 10/09/17 08:05 Pulse 72 10/09/17 08:05 Resp 20 10/09/17 08:05 BP 123/58 L 10/09/17 08:07 Pulse Ox 94 L 10/09/17 08:05 Weight - Most Recent: 189.057 kg I&O - Last 24 Hours: Intake & Output 10/08/17 10/09/17 10/09/17 22:59 06:59 14:59 Intake Total 3236 2461 Output Total 2650 Balance 3236 -189 Lab Results Last 24 Hours: Laboratory Results - last 24 hr 10/08/17 10/08/17 10/08/17 Range/Units 06:35 07:14 08:30 WBC (4.23-9.07) K/mm3 RBC (4.63-6.08) M/mm3 Hgb (13.7-17.5) gm/L Hct (40.1-51.0) % MCV (79.0-92.2) fl MCH (25.7-32.2) pg MCHC (32.2-35.5) g/dl RDW Std Deviation (35.1-43.9) fL Plt Count (163-337) K/mm3 MPV (9.4-12.3) fl Neut % (Auto) (34.0-67.9) % Lymph % (Auto) (21.8-53.1) % [place] % (Auto) (5.3-12.2) % Eos % (Auto) (0.8-7.0) Baso % (Auto) (0.1-1.2) % Neut # (Auto) (1.78-5.38) K/mm3 Lymph # (Auto) (1.32-3.57) K/mm3 [place] # (Auto) (0.30-0.82) K/mm3 Eos # (Auto) (0.04-0.54) K/mm3 Baso # (Auto) (0.01-0.08) K/mm3 Sodium (136-145) mEq/L Potassium (3.5-5.1) mEq/L Chloride (98-107) mEq/L Carbon Dioxide (21-32) mEq/L Anion Gap (5-15) BUN (7-18) mg/dL Creatinine (0.7-1.3) mg/dL Est Cr Clr Drug Dosing mL/min Estimated GFR (MDRD) (>60) mL/min BUN/Creatinine Ratio (14-18) Glucose (74-106) mg/dL POC Glucose (70-105) mg/dL Hemoglobin A1c 9.60 H (4.50-6.20) % Lactic Acid (0.4-2.0) mmol/L Calcium (8.5-10.1) mg/dL Magnesium 0.9 L (1.8-2.4) mg/dl C-Reactive Protein (<1.0) mg/dL Triglycerides (<150) mg/dL Cholesterol (<200) mg/dL LDL Cholesterol Direct (<100) mg/dL HDL Cholesterol (40-59) mg/dL Free T4 (0.76-1.46) ng/dL TSH 3rd Generation (0.358-3.74) uIU/mL Urine Color [place]a H (Yellow) Urine Appearance Turbid H (Clear) Urine pH 5.5 (5.0-8.0) Ur Specific [place] > or = 1.030 (1.005-1.030) Urine Protein 2+ H (Negative) Urine Glucose (UA) 2+ H (Negative) Urine Ketones Trace H (Negative) Urine Occult Blood Negative (Negative) Urine Nitrite Negative (Negative) Urine Bilirubin Negative (Negative) Urine Urobilinogen 0.2 (0.2-1.0) Ur Leukocyte Esterase Negative (Negative) Urine RBC Not seen (0-5) /hpf Urine WBC 0-5 (0-5) /hpf Urine WBC Clumps Not seen (NOT SEEN) /hpf Ur Epithelial Cells 0-5 (0-5) /hpf Amorphous Sediment Many H (NOT SEEN) /hpf Urine Bacteria Moderate H (FEW) /hpf Urine Mucus Few (FEW) /hpf Ur Random Microalbumin (1.3-20.0) mg/L Ketones (0.0-0.3) mM MRSA (PCR) 10/08/17 10/08/17 10/08/17 Range/Units 09:05 10:48 13:38 WBC (4.23-9.07) K/mm3 RBC (4.63-6.08) M/mm3 Hgb (13.7-17.5) gm/L Hct (40.1-51.0) % MCV (79.0-92.2) fl MCH (25.7-32.2) pg MCHC (32.2-35.5) g/dl RDW Std Deviation (35.1-43.9) fL Plt Count (163-337) K/mm3 MPV (9.4-12.3) fl Neut % (Auto) (34.0-67.9) % Lymph % (Auto) (21.8-53.1) % [place] % (Auto) (5.3-12.2) % Eos % (Auto) (0.8-7.0) Baso % (Auto) (0.1-1.2) % Neut # (Auto) (1.78-5.38) K/mm3 Lymph # (Auto) (1.32-3.57) K/mm3 [place] # (Auto) (0.30-0.82) K/mm3 Eos # (Auto) (0.04-0.54) K/mm3 Baso # (Auto) (0.01-0.08) K/mm3 Sodium (136-145) mEq/L Potassium (3.5-5.1) mEq/L Chloride (98-107) mEq/L Carbon Dioxide (21-32) mEq/L Anion Gap (5-15) BUN (7-18) mg/dL Creatinine (0.7-1.3) mg/dL Est Cr Clr Drug Dosing mL/min Estimated GFR (MDRD) (>60) mL/min BUN/Creatinine Ratio (14-18) Glucose (74-106) mg/dL POC Glucose (70-105) mg/dL Hemoglobin A1c (4.50-6.20) % Lactic Acid (0.4-2.0) mmol/L Calcium (8.5-10.1) mg/dL Magnesium (1.8-2.4) mg/dl C-Reactive Protein 7.4 H* (<1.0) mg/dL Triglycerides (<150) mg/dL Cholesterol (<200) mg/dL LDL Cholesterol Direct (<100) mg/dL HDL Cholesterol (40-59) mg/dL Free T4 (0.76-1.46) ng/dL TSH 3rd Generation (0.358-3.74) uIU/mL Urine Color (Yellow) Urine Appearance (Clear) Urine pH (5.0-8.0) Ur Specific [place] (1.005-1.030) Urine Protein (Negative) Urine Glucose (UA) (Negative) Urine Ketones (Negative) Urine Occult Blood (Negative) Urine Nitrite (Negative) Urine Bilirubin (Negative) Urine Urobilinogen (0.2-1.0) Ur Leukocyte Esterase (Negative) Urine RBC (0-5) /hpf Urine WBC (0-5) /hpf Urine WBC Clumps (NOT SEEN) /hpf Ur Epithelial Cells (0-5) /hpf Amorphous Sediment (NOT SEEN) /hpf Urine Bacteria (FEW) /hpf Urine Mucus (FEW) /hpf Ur Random Microalbumin 806.4 H (1.3-20.0) mg/L Ketones (0.0-0.3) mM MRSA (PCR) Negative 10/08/17 10/08/17 10/08/17 Range/Units 13:54 13:54 16:46 WBC (4.23-9.07) K/mm3 RBC (4.63-6.08) M/mm3 Hgb (13.7-17.5) gm/L Hct (40.1-51.0) % MCV (79.0-92.2) fl MCH (25.7-32.2) pg MCHC (32.2-35.5) g/dl RDW Std Deviation (35.1-43.9) fL Plt Count (163-337) K/mm3 MPV (9.4-12.3) fl Neut % (Auto) (34.0-67.9) % Lymph % (Auto) (21.8-53.1) % [place] % (Auto) (5.3-12.2) % Eos % (Auto) (0.8-7.0) Baso % (Auto) (0.1-1.2) % Neut # (Auto) (1.78-5.38) K/mm3 Lymph # (Auto) (1.32-3.57) K/mm3 [place] # (Auto) (0.30-0.82) K/mm3 Eos # (Auto) (0.04-0.54) K/mm3 Baso # (Auto) (0.01-0.08) K/mm3 Sodium (136-145) mEq/L Potassium (3.5-5.1) mEq/L Chloride (98-107) mEq/L Carbon Dioxide (21-32) mEq/L Anion Gap (5-15) BUN (7-18) mg/dL Creatinine (0.7-1.3) mg/dL Est Cr Clr Drug Dosing mL/min Estimated GFR (MDRD) (>60) mL/min BUN/Creatinine Ratio (14-18) Glucose (74-106) mg/dL POC Glucose 173 H (70-105) mg/dL Hemoglobin A1c (4.50-6.20) % Lactic Acid 1.8 (0.4-2.0) mmol/L Calcium (8.5-10.1) mg/dL Magnesium (1.8-2.4) mg/dl C-Reactive Protein (<1.0) mg/dL Triglycerides (<150) mg/dL Cholesterol (<200) mg/dL LDL Cholesterol Direct (<100) mg/dL HDL Cholesterol (40-59) mg/dL Free T4 (0.76-1.46) ng/dL TSH 3rd Generation (0.358-3.74) uIU/mL Urine Color (Yellow) Urine Appearance (Clear) Urine pH (5.0-8.0) Ur Specific [place] (1.005-1.030) Urine Protein (Negative) Urine Glucose (UA) (Negative) Urine Ketones (Negative) Urine Occult Blood (Negative) Urine Nitrite (Negative) Urine Bilirubin (Negative) Urine Urobilinogen (0.2-1.0) Ur Leukocyte Esterase (Negative) Urine RBC (0-5) /hpf Urine WBC (0-5) /hpf Urine WBC Clumps (NOT SEEN) /hpf Ur Epithelial Cells (0-5) /hpf Amorphous Sediment (NOT SEEN) /hpf Urine Bacteria (FEW) /hpf Urine Mucus (FEW) /hpf Ur Random Microalbumin (1.3-20.0) mg/L Ketones 0.08 (0.0-0.3) mM MRSA (PCR) 10/08/17 10/09/17 10/09/17 Range/Units 20:55 06:26 06:26 WBC 10.51 H (4.23-9.07) K/mm3 RBC 4.75 (4.63-6.08) M/mm3 Hgb 13.5 L (13.7-17.5) gm/L Hct 40.3 (40.1-51.0) % MCV 84.8 (79.0-92.2) fl MCH 28.4 (25.7-32.2) pg MCHC 33.5 (32.2-35.5) g/dl RDW Std Deviation 43.3 (35.1-43.9) fL Plt Count 189 (163-337) K/mm3 MPV 10.1 (9.4-12.3) fl Neut % (Auto) 67.1 (34.0-67.9) % Lymph % (Auto) 22.1 (21.8-53.1) % [place] % (Auto) 9.4 (5.3-12.2) % Eos % (Auto) 0.9 (0.8-7.0) Baso % (Auto) 0.2 (0.1-1.2) % Neut # (Auto) 7.06 H (1.78-5.38) K/mm3 Lymph # (Auto) 2.32 (1.32-3.57) K/mm3 [place] # (Auto) 0.99 H (0.30-0.82) K/mm3 Eos # (Auto) 0.09 (0.04-0.54) K/mm3 Baso # (Auto) 0.02 (0.01-0.08) K/mm3 Sodium 137 (136-145) mEq/L Potassium 3.8 (3.5-5.1) mEq/L Chloride 105 (98-107) mEq/L Carbon Dioxide 26 (21-32) mEq/L Anion Gap 9.8 (5-15) BUN 8 (7-18) mg/dL Creatinine 0.9 (0.7-1.3) mg/dL Est Cr Clr Drug Dosing 122.15 mL/min Estimated GFR (MDRD) > 60 (>60) mL/min BUN/Creatinine Ratio 8.9 L (14-18) Glucose 179 H (74-106) mg/dL POC Glucose 178 H (70-105) mg/dL Hemoglobin A1c (4.50-6.20) % Lactic Acid (0.4-2.0) mmol/L Calcium 8.0 L (8.5-10.1) mg/dL Magnesium 1.6 L (1.8-2.4) mg/dl C-Reactive Protein 19.2 H* (<1.0) mg/dL Triglycerides 142 (<150) mg/dL Cholesterol 132 (<200) mg/dL LDL Cholesterol Direct 79 (<100) mg/dL HDL Cholesterol 32.0 L (40-59) mg/dL Free T4 0.88 (0.76-1.46) ng/dL TSH 3rd Generation 1.522 (0.358-3.74) uIU/mL Urine Color (Yellow) Urine Appearance (Clear) Urine pH (5.0-8.0) Ur Specific [place] (1.005-1.030) Urine Protein (Negative) Urine Glucose (UA) (Negative) Urine Ketones (Negative) Urine Occult Blood (Negative) Urine Nitrite (Negative) Urine Bilirubin (Negative) Urine Urobilinogen (0.2-1.0) Ur Leukocyte Esterase (Negative) Urine RBC (0-5) /hpf Urine WBC (0-5) /hpf Urine WBC Clumps (NOT SEEN) /hpf Ur Epithelial Cells (0-5) /hpf Amorphous Sediment (NOT SEEN) /hpf Urine Bacteria (FEW) /hpf Urine Mucus (FEW) /hpf Ur Random Microalbumin (1.3-20.0) mg/L Ketones (0.0-0.3) mM MRSA (PCR) 10/09/17 Range/Units 06:28 WBC (4.23-9.07) K/mm3 RBC (4.63-6.08) M/mm3 Hgb (13.7-17.5) gm/L Hct (40.1-51.0) % MCV (79.0-92.2) fl MCH (25.7-32.2) pg MCHC (32.2-35.5) g/dl RDW Std Deviation (35.1-43.9) fL Plt Count (163-337) K/mm3 MPV (9.4-12.3) fl Neut % (Auto) (34.0-67.9) % Lymph % (Auto) (21.8-53.1) % [place] % (Auto) (5.3-12.2) % Eos % (Auto) (0.8-7.0) Baso % (Auto) (0.1-1.2) % Neut # (Auto) (1.78-5.38) K/mm3 Lymph # (Auto) (1.32-3.57) K/mm3 [place] # (Auto) (0.30-0.82) K/mm3 Eos # (Auto) (0.04-0.54) K/mm3 Baso # (Auto) (0.01-0.08) K/mm3 Sodium (136-145) mEq/L Potassium (3.5-5.1) mEq/L Chloride (98-107) mEq/L Carbon Dioxide (21-32) mEq/L Anion Gap (5-15) BUN (7-18) mg/dL Creatinine (0.7-1.3) mg/dL Est Cr Clr Drug Dosing mL/min Estimated GFR (MDRD) (>60) mL/min BUN/Creatinine Ratio (14-18) Glucose (74-106) mg/dL POC Glucose 185 H (70-105) mg/dL Hemoglobin A1c (4.50-6.20) % Lactic Acid (0.4-2.0) mmol/L Calcium (8.5-10.1) mg/dL Magnesium (1.8-2.4) mg/dl C-Reactive Protein (<1.0) mg/dL Triglycerides (<150) mg/dL Cholesterol (<200) mg/dL LDL Cholesterol Direct (<100) mg/dL HDL Cholesterol (40-59) mg/dL Free T4 (0.76-1.46) ng/dL TSH 3rd Generation (0.358-3.74) uIU/mL Urine Color (Yellow) Urine Appearance (Clear) Urine pH (5.0-8.0) Ur Specific [place] (1.005-1.030) Urine Protein (Negative) Urine Glucose (UA) (Negative) Urine Ketones (Negative) Urine Occult Blood (Negative) Urine Nitrite (Negative) Urine Bilirubin (Negative) Urine Urobilinogen (0.2-1.0) Ur Leukocyte Esterase (Negative) Urine RBC (0-5) /hpf Urine WBC (0-5) /hpf Urine WBC Clumps (NOT SEEN) /hpf Ur Epithelial Cells (0-5) /hpf Amorphous Sediment (NOT SEEN) /hpf Urine Bacteria (FEW) /hpf Urine Mucus (FEW) /hpf Ur Random Microalbumin (1.3-20.0) mg/L Ketones (0.0-0.3) mM MRSA (PCR) [place] Results Last 24 Hours: Microbiology 10/08/17 06:50 Aerobic Blood Culture - Preliminary Blood - Venous - Lab Draw NO GROWTH AFTER 1 DAY Anaerobic Blood Culture - Preliminary NO GROWTH AFTER 1 DAY 10/08/17 06:35 Aerobic Blood Culture - Preliminary Blood - Venous NO GROWTH AFTER 1 DAY Anaerobic Blood Culture - Preliminary NO GROWTH AFTER 1 DAY Med Orders - Current: Current Medications Acetaminophen (Tylenol) 650 mg PO Q4H PRN PRN Reason: Pain (Mild 1-3)/fever Acetaminophen/Butalbital/Caffeine (Fioricet 325-50-40 Mg) 2 tab PO Q8H PRN PRN Reason: Headache Last Admin: 10/09/17 02:16 Dose: 2 tab Hydrocodone Bitart/Acetaminophen ([place] 325-5 Mg) 1 tab PO Q4H PRN PRN Reason: Pain (moderate 4-6) Bisacodyl (Dulcolax) 5 mg PO DAILY PRN PRN Reason: Constipation Citalopram Hydrobromide (Celexa) 20 mg PO DAILY [facility] Last Admin: 10/09/17 08:06 Dose: 20 mg Docusate Sodium (Colace) 100 mg PO BID PRN PRN Reason: Constipation Enoxaparin Sodium (Lovenox) 40 mg SUBCUT DAILY [facility] Last Admin: 10/09/17 08:10 Dose: 40 mg Hydrochlorothiazide (Hydrochlorothiazide) 25 mg PO DAILY [facility] Last Admin: 10/09/17 08:08 Dose: 25 mg Sodium Chloride (Normal Saline) 1,000 mls @ 125 mls/hr IV ASDIRECTED [facility] Last Admin: 10/09/17 02:09 Dose: 125 mls/hr Vancomycin HCl 2 gm/ Sodium (Chloride) 500 mls @ 250 mls/hr IV Q8H [facility] Insulin Aspart (Novolog) 0 unit SUBCUT QIDACANDBED [facility]; Protocol Last Admin: 10/09/17 08:09 Dose: 2 unit Lisinopril (Prinivil) 20 mg PO DAILY [facility] Last Admin: 10/09/17 08:07 Dose: 20 mg Magnesium Hydroxide (Milk Of Magnesia) 30 ml PO Q12H PRN PRN Reason: Constipation Metformin HCl (Glucophage) 1,000 mg PO BIDMEALS [facility] Last Admin: 10/09/17 07:18 Dose: 1,000 mg Morphine Sulfate (Morphine) 2 mg IVPUSH Q2H PRN PRN Reason: Pain (severe 7-10) Stop: 10/09/17 14:30 Ondansetron HCl (Zofran Odt) 4 mg PO Q4H PRN PRN Reason: nausea, able to take PO Ondansetron HCl (Zofran) 4 mg IV Q4H PRN PRN Reason: Nausea/Vomiting Pantoprazole Sodium (Protonix Iv) 40 mg IVPUSH DAILY [facility] Last Admin: 10/09/17 08:11 Dose: 40 mg Polyethylene Glycol (Miralax) 17 gm PO DAILY PRN PRN Reason: Constipation Saccharomyces Boulardii (Florastor) 250 mg PO BID [facility] Last Admin: 10/09/17 08:09 Dose: 250 mg Senna/Docusate Sodium (Senna Plus) 1 tab PO BID PRN PRN Reason: Constipation Temazepam (Restoril) 7.5 mg PO BEDTIME PRN PRN Reason: Sleep Vancomycin HCl (Pharmacy To Dose - Vancomycin) 0 dose .XX ASDIRECTED PRN PRN Reason: RX TO DOSE VANCOMYCIN Discontinued Medications Acetaminophen (Tylenol) 975 mg PO NOW ONE Stop: 10/08/17 08:16 Last Admin: 10/08/17 08:25 Dose: 975 mg Vancomycin HCl 2 gm/ Sodium (Chloride) 250 mls @ 250 mls/hr IV ONETIME ONE Stop: 10/08/17 09:09 Last Admin: 10/08/17 12:33 Dose: Not Given Sodium Chloride (Normal Saline) 1,000 mls @ 1,000 mls/hr IV ONETIME ONE Stop: 10/08/17 09:11 Last Admin: 10/08/17 08:24 Dose: 1,000 mls/hr Vancomycin HCl 2 gm/ Sodium (Chloride) 500 mls @ 250 mls/hr IV ONETIME ONE Stop: 10/08/17 10:29 Last Admin: 10/08/17 08:29 Dose: 250 mls/hr Sodium Chloride (Normal Saline) 4,300 mls @ 1,000 mls/hr IV ONETIME ONE Stop: 10/08/17 12:44 Last Admin: 10/08/17 14:01 Dose: Not Given Sodium Chloride (Normal Saline) 1,000 mls @ 999 mls/hr IV Q1H [facility] Stop: 10/08/17 17:44 Last Admin: 10/08/17 18:20 Dose: 999 mls/hr Magnesium Sulfate 4 gm/ Premix 100 mls @ 25 mls/hr IV ONETIME ONE Stop: 10/08/17 17:59 Last Admin: 10/08/17 17:20 Dose: 25 mls/hr Vancomycin HCl 2 gm/ Sodium (Chloride) 500 mls @ 250 mls/hr IV Q12H [facility] Last Admin: 10/08/17 19:45 Dose: Not Given Vancomycin HCl 2 gm/ Sodium (Chloride) 500 mls @ 250 mls/hr IV Q12H [facility] Last Admin: 10/09/17 09:16 Dose: 250 mls/hr Ibuprofen (Motrin) 400 mg PO ONETIME ONE Stop: 10/08/17 17:01 Last Admin: 10/08/17 17:27 Dose: 400 mg Lisinopril (Prinivil) 20 mg PO DAILY [facility] Magnesium Sulfate (Pharmacy To Dose - Magnesium Replacement) 0 dose .XX ASDIRECTED PRN PRN Reason: RX TO WATCH MAG LEVELS Potassium Chloride (Pharmacy To Dose - Potassium Replacement) 0 dose .XX ASDIRECTED PRN PRN Reason: RX TO WATCH K LEVELS Potassium Chloride (Klor-Con M20) 60 meq PO ONETIME ONE Stop: 10/08/17 14:01 Last Admin: 10/08/17 14:01 Dose: 60 meq Vancomycin HCl (Vancocin) Confirm Administered Dose 2 gm .ROUTE .STK-MED ONE Stop: 10/08/17 08:15 Last Admin: 10/08/17 12:32 Dose: Not Given - Exam Quality Assessment: DVT Prophylaxis General: Alert, Oriented, Cooperative, No Acute Distress HEENT: Pupils Equal, Pupils Reactive, EOMI Neck: Supple, Trachea Midline, No JVD Lungs: Normal Respiratory Effort Cardiovascular: Regular Rate, Regular Rhythm GI/Abdominal Exam: Normal Bowel Sounds, Soft, Non-Tender, No Organomegaly, No Distention (Male) Exam: Deferred Back Exam: Normal Inspection Extremities: Non-Tender, Pedal Edema, Slow Capillary Refill, Increased Warmth, Redness Skin: Warm, Dry, Intact Wound/Incisions: No Drainage Neurological: No New Focal Deficit Psy/Mental Status: Alert, Normal Affect, Normal Mood - Problem List & Annotations (1) Morbid obesity SNOMED Code(s): 419645719 Code(s): E66.01 - MORBID (SEVERE) OBESITY DUE TO EXCESS CALORIES Status: Acute Current Visit: Yes (2) Cellulitis SNOMED Code(s): 062915784 Code(s): L03.90 - CELLULITIS, UNSPECIFIED Status: Acute Priority: High Current Visit: Yes Qualifiers: Site of cellulitis: extremity Site of cellulitis of extremity: lower extremity Laterality: left Qualified Code(s): L03.116 - Cellulitis of left lower limb (3) Electrolyte abnormality SNOMED Code(s): 450447858 Code(s): E87.8 - OTH DISORDERS OF ELECTROLYTE AND FLUID BALANCE, NEC Status : Acute Priority: High Current Visit: Yes (4) Diabetes mellitus SNOMED Code(s): 74494531 Code(s): E11.9 - TYPE 2 DIABETES MELLITUS WITHOUT COMPLICATIONS Status: Chronic Priority: Medium Current Visit: Yes Qualifiers: Diabetes mellitus type: type 2 Diabetes mellitus detention insulin use: without termite control representative use Diabetes mellitus complication status: with kidney complications Diabetes mellitus complication detail: with microalbuminuria Qualified Code(s): E11.29 - Type 2 diabetes mellitus with other diabetic kidney complication; R80.9 - Proteinuria, unspecified (5) HTN (hypertension) SNOMED Code(s): 26029638 Code(s): I10 - ESSENTIAL (PRIMARY) HYPERTENSION Status: Chronic Priority : Medium Current Visit: No Qualifiers: Hypertension type: unspecified Qualified Code(s): I10 - Essential (primary ) hypertension (6) Sleep apnea SNOMED Code(s): 89665797 Code(s): G47.30 - SLEEP APNEA, UNSPECIFIED Status: Chronic Priority: Low Current Visit: No Qualifiers: Sleep apnea type: unspecified type Qualified Code(s): G47.30 - Sleep apnea , unspecified - Problem List Review Problem List Initiated/Reviewed/Updated: Yes - Plan Plan:: I/P: Cellulitis of Left Lower leg -Risk factors: h/o of chronic cellulitis of left leg (annually since 2006), Uncontrolled DM2 -Fever 101.4, Tachycardia 114, Tachypnea 18, WBC 21.31 -Vanco and IVF in ED--> continue -Lactid Acid 2.9-->1.8 -Sepsis work up; will add Unasyn -Monitor Tension Headache/Neck pain -Risk factors: h/o of this type of STACK before -01/24 pain, Nausea; Denies aura, sensitivity to light -States it is behind his head and on the left side of his neck -CT head in ED--> no acute abnormalities -PT evaluation--> Recommend outpt PT -Pain medication PRN Electrolyte Abnormalities -Mg 0.9, K 3.2 -Replenish as needed Chronic: DM2 with Microalbuminuria -Urine Microalbumin 806.4, eGFR >60 -Glucose 280 in ED -Monitor Glucose QID -Order A1C -Insulin sliding scale PRN -Continue at home Metformin -ADA diet -IVF -F/U with PCP HTN--> Continue at home Lisinopril and HCTZ Depression--> continue at home Lexapro GERD Plan: Transfered to Med surg today He remains stable and continues to improve clinically Other orders as indicated above Routine AM labs ADA diet DVT Prophylaxis: Lovenox GI Prophylaxis: Protonix Ambulated as tolerated Code Status:Full Code; PCP: Corona Kwon at [facility] in [place]
[2017-10-09] MEDS: Acetaminophen 325 MG Tab PO PRN ×2 (10:25→13:56)
[2017-10-09] MEDS: Ampicillin/Sulbactam Na 3 GM in Sodium Chloride 0.9% 100 ML IV SCH ×2 (13:49→20:44)
[2017-10-10] MEDS: Vancomycin 2 GM in Sodium Chloride 0.9% 500 ML IV SCH ×2 (00:52→10:00)
[2017-10-10] MEDS: Ampicillin/Sulbactam Na 3 GM in Sodium Chloride 0.9% 100 ML IV SCH ×4 (00:52→18:01)
[2017-10-10] MEDS: Acetaminophen/Butalbital/Caffeine 325-50-40 MG Tab PO PRN (00:57)
[2017-10-10] MEDS: metFORMIN 500 MG Tab PO SCH ×2 (06:37→17:23)
[2017-10-10] MEDS: Citalopram 20 MG Tab PO SCH (08:00)
[2017-10-10] MEDS: Saccharomyces Boulardii (Probiotic) 250 MG Cap PO SCH ×2 (08:00→21:40)
[2017-10-10] MEDS: Lisinopril 20 MG Tab PO SCH (08:01)
[2017-10-10] MEDS: Enoxaparin 40 MG/0.4 ML Syringe SUBCUT SCH (08:06)
[2017-10-10] MEDS: Insulin Aspart 100 Units/ML 3 ML Pen SUBCUT SCH ×4 (08:07→21:53)
[2017-10-10] MEDS: Pantoprazole 40 MG Vial IVPUSH SCH (08:08)
[2017-10-10] MEDS: Hydrochlorothiazide 25 MG Tab PO SCH (08:30)
[2017-10-10] MEDS ORDERED: SODIUM CHLORIDE 0.9% IV SCH (10:00)
[2017-10-10] MEDS ORDERED: VANCOMYCIN IV SCH (10:00)
[2017-10-10] MEDS ORDERED: Magnesium Sulfate/Water 4 GM in Premix Bag 1 BAG IV ONE (10:02)
[2017-10-10] MEDS: Potassium Chloride 20 MEQ Tab.ER PO SCH ×2 (10:18→21:41)
[2017-10-10] MEDS: Magnesium Sulfate/Water 2 GM in Premix Bag 1 BAG IV SCH ×2 (10:21→11:29)
--- NOTE | 2017-10-10 13:23 | PCM.PN ---
- General Info Date of Service: 10/10/17 Functional Status: Reports: Pain Controlled, Tolerating Diet - Review of Systems General: Reports: No Symptoms HEENT: Reports: No Symptoms Pulmonary: Reports: No Symptoms Cardiovascular: Reports: No Symptoms Gastrointestinal: Reports: No Symptoms Genitourinary: Reports: No Symptoms Musculoskeletal: Reports: No Symptoms Skin: Reports: No Symptoms Neurological: Reports: No Symptoms Psychiatric: Reports: No Symptoms - Patient Data Vitals - Most Recent: Last Vital Signs Temp 36.6 C 10/10/17 04:16 Pulse 67 10/10/17 08:04 Resp 18 10/10/17 08:04 BP 133/76 10/10/17 08:04 Pulse Ox 97 10/10/17 08:04 Weight - Most Recent: 187.742 kg I&O - Last 24 Hours: Intake & Output 10/09/17 10/10/17 10/10/17 22:59 06:59 14:59 Intake Total 3580 1900 120 Output Total 600 Balance 2980 1900 120 Lab Results Last 24 Hours: Laboratory Results - last 24 hr 10/09/17 10/09/17 10/10/17 Range/Units 17:26 21:00 06:07 WBC 8.83 (4.23-9.07) K/mm3 RBC 4.47 L (4.63-6.08) M/mm3 Hgb 12.8 L (13.7-17.5) gm/L Hct 37.8 L (40.1-51.0) % MCV 84.6 (79.0-92.2) fl MCH 28.6 (25.7-32.2) pg MCHC 33.9 (32.2-35.5) g/dl RDW Std Deviation 41.7 (35.1-43.9) fL Plt Count 185 (163-337) K/mm3 MPV 10.5 (9.4-12.3) fl Neut % (Auto) 52.1 (34.0-67.9) % Lymph % (Auto) 36.1 (21.8-53.1) % [place] % (Auto) 9.7 (5.3-12.2) % Eos % (Auto) 1.4 (0.8-7.0) Baso % (Auto) 0.1 (0.1-1.2) % Neut # (Auto) 4.60 (1.78-5.38) K/mm3 Lymph # (Auto) 3.19 (1.32-3.57) K/mm3 [place] # (Auto) 0.86 H (0.30-0.82) K/mm3 Eos # (Auto) 0.12 (0.04-0.54) K/mm3 Baso # (Auto) 0.01 (0.01-0.08) K/mm3 Sodium (136-145) mEq/L Potassium (3.5-5.1) mEq/L Chloride (98-107) mEq/L Carbon Dioxide (21-32) mEq/L Anion Gap (5-15) BUN (7-18) mg/dL Creatinine (0.7-1.3) mg/dL Est Cr Clr Drug Dosing mL/min Estimated GFR (MDRD) (>60) mL/min BUN/Creatinine Ratio (14-18) Glucose (74-106) mg/dL POC Glucose 187 H 157 H (70-105) mg/dL Calcium (8.5-10.1) mg/dL Magnesium (1.8-2.4) mg/dl C-Reactive Protein (<1.0) mg/dL Vancomycin Trough (10.0-20.0) 10/10/17 10/10/17 10/10/17 Range/Units 06:07 06:39 08:30 WBC (4.23-9.07) K/mm3 RBC (4.63-6.08) M/mm3 Hgb (13.7-17.5) gm/L Hct (40.1-51.0) % MCV (79.0-92.2) fl MCH (25.7-32.2) pg MCHC (32.2-35.5) g/dl RDW Std Deviation (35.1-43.9) fL Plt Count (163-337) K/mm3 MPV (9.4-12.3) fl Neut % (Auto) (34.0-67.9) % Lymph % (Auto) (21.8-53.1) % [place] % (Auto) (5.3-12.2) % Eos % (Auto) (0.8-7.0) Baso % (Auto) (0.1-1.2) % Neut # (Auto) (1.78-5.38) K/mm3 Lymph # (Auto) (1.32-3.57) K/mm3 [place] # (Auto) (0.30-0.82) K/mm3 Eos # (Auto) (0.04-0.54) K/mm3 Baso # (Auto) (0.01-0.08) K/mm3 Sodium 137 (136-145) mEq/L Potassium 3.3 L (3.5-5.1) mEq/L Chloride 103 (98-107) mEq/L Carbon Dioxide 25 (21-32) mEq/L Anion Gap 12.3 (5-15) BUN 6 L (7-18) mg/dL Creatinine 0.8 (0.7-1.3) mg/dL Est Cr Clr Drug Dosing 137.42 mL/min Estimated GFR (MDRD) > 60 (>60) mL/min BUN/Creatinine Ratio 7.5 L (14-18) Glucose 138 H (74-106) mg/dL POC Glucose 155 H (70-105) mg/dL Calcium 8.6 (8.5-10.1) mg/dL Magnesium 1.4 L (1.8-2.4) mg/dl C-Reactive Protein 11.8 H* (<1.0) mg/dL Vancomycin Trough 9.3 L (10.0-20.0) 10/10/18 Range/Units 11:27 WBC (4.23-9.07) K/mm3 RBC (4.63-6.08) M/mm3 Hgb (13.7-17.5) gm/L Hct (40.1-51.0) % MCV (79.0-92.2) fl MCH (25.7-32.2) pg MCHC (32.2-35.5) g/dl RDW Std Deviation (35.1-43.9) fL Plt Count (163-337) K/mm3 MPV (9.4-12.3) fl Neut % (Auto) (34.0-67.9) % Lymph % (Auto) (21.8-53.1) % [place] % (Auto) (5.3-12.2) % Eos % (Auto) (0.8-7.0) Baso % (Auto) (0.1-1.2) % Neut # (Auto) (1.78-5.38) K/mm3 Lymph # (Auto) (1.32-3.57) K/mm3 [place] # (Auto) (0.30-0.82) K/mm3 Eos # (Auto) (0.04-0.54) K/mm3 Baso # (Auto) (0.01-0.08) K/mm3 Sodium (136-145) mEq/L Potassium (3.5-5.1) mEq/L Chloride (98-107) mEq/L Carbon Dioxide (21-32) mEq/L Anion Gap (5-15) BUN (7-18) mg/dL Creatinine (0.7-1.3) mg/dL Est Cr Clr Drug Dosing mL/min Estimated GFR (MDRD) (>60) mL/min BUN/Creatinine Ratio (14-18) Glucose (74-106) mg/dL POC Glucose 189 H (70-105) mg/dL Calcium (8.5-10.1) mg/dL Magnesium (1.8-2.4) mg/dl C-Reactive Protein (<1.0) mg/dL Vancomycin Trough (10.0-20.0) [place] Results Last 24 Hours: Microbiology 10/08/17 06:50 Aerobic Blood Culture - Preliminary Blood - Venous - Lab Draw NO GROWTH AFTER 2 DAYS Anaerobic Blood Culture - Preliminary NO GROWTH AFTER 2 DAYS 10/08/17 06:35 Aerobic Blood Culture - Preliminary Blood - Venous NO GROWTH AFTER 2 DAYS Anaerobic Blood Culture - Preliminary NO GROWTH AFTER 2 DAYS Med Orders - Current: Current Medications Acetaminophen (Tylenol) 650 mg PO Q4H PRN PRN Reason: Pain (Mild 1-3)/fever Last Admin: 10/09/17 13:56 Dose: 650 mg Acetaminophen/Butalbital/Caffeine (Fioricet 325-50-40 Mg) 2 tab PO Q8H PRN PRN Reason: Headache Last Admin: 10/10/17 00:57 Dose: 2 tab Hydrocodone Bitart/Acetaminophen ([place] 325-5 Mg) 1 tab PO Q4H PRN PRN Reason: Pain (moderate 4-6) Bisacodyl (Dulcolax) 5 mg PO DAILY PRN PRN Reason: Constipation Citalopram Hydrobromide (Celexa) 20 mg PO DAILY [facility] Last Admin: 10/10/17 08:00 Dose: 20 mg Docusate Sodium (Colace) 100 mg PO BID PRN PRN Reason: Constipation Enoxaparin Sodium (Lovenox) 40 mg SUBCUT DAILY [facility] Last Admin: 10/10/17 08:06 Dose: 40 mg Hydrochlorothiazide (Hydrochlorothiazide) 25 mg PO DAILY [facility] Last Admin: 10/10/17 08:30 Dose: 25 mg Vancomycin HCl 2 gm/Vancomycin HCl 250 mg/ Sodium Chloride 500 mls @ 250 mls/ hr IV Q8H [facility] Stop: 10/10/17 13:30 Last Admin: 10/10/17 10:22 Dose: 250 mls/hr Ampicillin Sodium/Sulbactam (Sodium 3 gm/ Sodium Chloride) 100 mls @ 200 mls/ hr IV Q6H [facility] Last Admin: 10/10/17 13:04 Dose: 200 mls/hr Vancomycin HCl 2 gm/Vancomycin HCl 250 mg/ Sodium Chloride 500 mls @ 250 mls/ hr IV Q8H [facility] Insulin Aspart (Novolog) 0 unit SUBCUT QIDACANDBED [facility]; Protocol Last Admin: 10/10/17 11:33 Dose: 2 unit Lisinopril (Prinivil) 20 mg PO DAILY [facility] Last Admin: 10/10/17 08:01 Dose: 20 mg Magnesium Hydroxide (Milk Of Magnesia) 30 ml PO Q12H PRN PRN Reason: Constipation Metformin HCl (Glucophage) 1,000 mg PO BIDMEALS [facility] Last Admin: 10/10/17 06:37 Dose: 1,000 mg Ondansetron HCl (Zofran Odt) 4 mg PO Q4H PRN PRN Reason: nausea, able to take PO Ondansetron HCl (Zofran) 4 mg IV Q4H PRN PRN Reason: Nausea/Vomiting Pantoprazole Sodium (Protonix Iv) 40 mg IVPUSH DAILY [facility] Last Admin: 10/10/17 08:08 Dose: 40 mg Polyethylene Glycol (Miralax) 17 gm PO DAILY PRN PRN Reason: Constipation Potassium Chloride (Klor-Con M20) 40 meq PO BID [facility] Stop: 10/11/17 21:01 Last Admin: 10/10/17 10:18 Dose: 40 meq Saccharomyces Boulardii (Florastor) 250 mg PO BID [facility] Last Admin: 10/10/17 08:00 Dose: 250 mg Senna/Docusate Sodium (Senna Plus) 1 tab PO BID PRN PRN Reason: Constipation Temazepam (Restoril) 7.5 mg PO BEDTIME PRN PRN Reason: Sleep Vancomycin HCl (Pharmacy To Dose - Vancomycin) 0 dose .XX ASDIRECTED PRN PRN Reason: RX TO DOSE VANCOMYCIN Discontinued Medications Acetaminophen (Tylenol) 975 mg PO NOW ONE Stop: 10/08/17 08:16 Last Admin: 10/08/17 08:25 Dose: 975 mg Vancomycin HCl 2 gm/ Sodium (Chloride) 250 mls @ 250 mls/hr IV ONETIME ONE Stop: 10/08/17 09:09 Last Admin: 10/08/17 12:33 Dose: Not Given Sodium Chloride (Normal Saline) 1,000 mls @ 1,000 mls/hr IV ONETIME ONE Stop: 10/08/17 09:11 Last Admin: 10/08/17 08:24 Dose: 1,000 mls/hr Vancomycin HCl 2 gm/ Sodium (Chloride) 500 mls @ 250 mls/hr IV ONETIME ONE Stop: 10/08/17 10:29 Last Admin: 10/08/17 08:29 Dose: 250 mls/hr Sodium Chloride (Normal Saline) 4,300 mls @ 1,000 mls/hr IV ONETIME ONE Stop: 10/08/17 12:44 Last Admin: 10/08/17 14:01 Dose: Not Given Sodium Chloride (Normal Saline) 1,000 mls @ 999 mls/hr IV Q1H [facility] Stop: 10/08/17 17:44 Last Admin: 10/08/17 18:20 Dose: 999 mls/hr Magnesium Sulfate 4 gm/ Premix 100 mls @ 25 mls/hr IV ONETIME ONE Stop: 10/08/17 17:59 Last Admin: 10/08/17 17:20 Dose: 25 mls/hr Vancomycin HCl 2 gm/ Sodium (Chloride) 500 mls @ 250 mls/hr IV Q12H [facility] Last Admin: 10/08/17 19:45 Dose: Not Given Vancomycin HCl 2 gm/ Sodium (Chloride) 500 mls @ 250 mls/hr IV Q12H [facility] Last Admin: 10/09/17 09:16 Dose: 250 mls/hr Sodium Chloride (Normal Saline) 1,000 mls @ 125 mls/hr IV ASDIRECTED [facility] Last Admin: 10/09/17 10:24 Dose: 125 mls/hr Vancomycin HCl 2 gm/ Sodium (Chloride) 500 mls @ 250 mls/hr IV Q8H [facility] Last Admin: 10/10/17 10:00 Dose: Not Given Ampicillin Sodium/Sulbactam (Sodium 3 gm/ Sodium Chloride) 100 mls @ 200 mls/ hr IV Q6H [facility] Last Admin: 10/10/17 06:37 Dose: 200 mls/hr Magnesium Sulfate 4 gm/ Premix 100 mls @ 300 mls/hr IV ONETIME ONE Stop: 10/10/17 10:03 Last Admin: 10/10/17 10:08 Dose: Not Given Magnesium Sulfate 2 gm/ Premix 50 mls @ 50 mls/hr IV Q1H [facility] Stop: 10/10/17 12:14 Last Admin: 10/10/17 11:29 Dose: 50 mls/hr Ibuprofen (Motrin) 400 mg PO ONETIME ONE Stop: 10/08/17 17:01 Last Admin: 10/08/17 17:27 Dose: 400 mg Lisinopril (Prinivil) 20 mg PO DAILY [facility] Magnesium Sulfate (Pharmacy To Dose - Magnesium Replacement) 0 dose .XX ASDIRECTED PRN PRN Reason: RX TO WATCH MAG LEVELS Morphine Sulfate (Morphine) 2 mg IVPUSH Q2H PRN PRN Reason: Pain (severe 7-10) Stop: 10/09/17 14:30 Potassium Chloride (Pharmacy To Dose - Potassium Replacement) 0 dose .XX ASDIRECTED PRN PRN Reason: RX TO WATCH K LEVELS Potassium Chloride (Klor-Con M20) 60 meq PO ONETIME ONE Stop: 10/08/17 14:01 Last Admin: 10/08/17 14:01 Dose: 60 meq Vancomycin HCl (Vancocin) Confirm Administered Dose 2 gm .ROUTE .STK-MED ONE Stop: 10/08/17 08:15 Last Admin: 10/08/17 12:32 Dose: Not Given - Exam Quality Assessment: DVT Prophylaxis General: Alert, Oriented, Cooperative, No Acute Distress HEENT: Pupils Equal, Pupils Reactive, EOMI Neck: Trachea Midline, No JVD Lungs: Normal Respiratory Effort Cardiovascular: Regular Rate, Regular Rhythm GI/Abdominal Exam: Normal Bowel Sounds, Soft, Non-Tender, No Organomegaly, No Distention (Male) Exam: Deferred Back Exam: Normal Inspection Extremities: Normal Inspection, Normal Capillary Refill, Redness Skin: Warm Neurological: No New Focal Deficit Psy/Mental Status: Alert, Normal Affect, Normal Mood - Problem List & Annotations (1) Morbid obesity SNOMED Code(s): 396670861 Code(s): E66.01 - MORBID (SEVERE) OBESITY DUE TO EXCESS CALORIES Status: Acute Current Visit: Yes (2) Cellulitis SNOMED Code(s): 530035256 Code(s): L03.90 - CELLULITIS, UNSPECIFIED Status: Acute Priority: High Current Visit: Yes Qualifiers: Site of cellulitis: extremity Site of cellulitis of extremity: lower extremity Laterality: left Qualified Code(s): L03.116 - Cellulitis of left lower limb (3) Electrolyte abnormality SNOMED Code(s): 603744126 Code(s): E87.8 - OTH DISORDERS OF ELECTROLYTE AND FLUID BALANCE, NEC Status : Acute Priority: High Current Visit: Yes (4) Diabetes mellitus SNOMED Code(s): 13092098 Code(s): E11.9 - TYPE 2 DIABETES MELLITUS WITHOUT COMPLICATIONS Status: Chronic Priority: Medium Current Visit: Yes Qualifiers: Diabetes mellitus type: type 2 Diabetes mellitus usp insulin 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 Diabetes mellitus complication status: with kidney complications Diabetes mellitus complication detail: with microalbuminuria Qualified Code(s): E11.29 - Type 2 diabetes mellitus with other diabetic kidney complication; R80.9 - Proteinuria, unspecified (5) HTN (hypertension) SNOMED Code(s): 79004109 Code(s): I10 - ESSENTIAL (PRIMARY) HYPERTENSION Status: Chronic Priority : Medium Current Visit: No Qualifiers: Hypertension type: unspecified Qualified Code(s): I10 - Essential (primary ) hypertension (6) Sleep apnea SNOMED Code(s): 12900698 Code(s): G47.30 - SLEEP APNEA, UNSPECIFIED Status: Chronic Priority: Low Current Visit: No Qualifiers: Sleep apnea type: unspecified type Qualified Code(s): G47.30 - Sleep apnea , unspecified - Problem List Review Problem List Initiated/Reviewed/Updated: Yes - My Orders Last 24 Hours: My Active Orders 10/10/17 10:15 Potassium Chloride [Klor-Con M20] 40 meq PO BID 10/10/17 13:00 Ampicillin/Sulbactam Na [Unasyn] 3 gm Sodium Chloride 0.9% [Normal Saline] 100 ml IV Q6H - Plan Plan:: I/P: Cellulitis of Left Lower leg Vanco/Unasyn -Risk factors: h/o of chronic cellulitis of left leg (annually since 2006), Uncontrolled DM2 -Fever 101.4, Tachycardia 114, Tachypnea 18, WBC 21.31 -Vanco and IVF in ED--> continue -Lactic Acid 2.9-->1.8 -Sepsis work up; will add Unasyn -Monitor Tension Headache/Neck pain -Risk factors: h/o of this type of STACK before -01/24 pain, Nausea; Denies aura, sensitivity to light -States it is behind his head and on the left side of his neck -CT head in ED--> no acute abnormalities -PT evaluation--> Recommend outpt PT -Pain medication PRN Electrolyte Abnormalities -Mg/K -Replenish as needed Chronic: DM2 with Microalbuminuria -Urine Microalbumin 806.4, eGFR >60 -Glucose 280 in ED -Monitor Glucose QID -Order A1C -Insulin sliding scale PRN -Continue at home Metformin -ADA diet -IVF -F/U with PCP HTN--> Continue at home Lisinopril and HCTZ Depression--> continue at home Lexapro GERD Morbidly obese, BMI 56.1--> dietary consult for DM/wt loss Plan: Transfered to [facility] surg He remains stable and continues to improve clinically Other orders as indicated above Routine AM labs ADA diet DVT Prophylaxis: Lovenox GI Prophylaxis: Protonix Ambulated as tolerated Code Status:Full Code; PCP: Corona Kwon at [facility] in [place]
[2017-10-10] MEDS: VANCOMYCIN IV SCH (18:51)
[2017-10-10] MEDS: SODIUM CHLORIDE 0.9% IV SCH (18:51)
[2017-10-11] MEDS: Ampicillin/Sulbactam Na 3 GM in Sodium Chloride 0.9% 100 ML IV SCH ×4 (00:54→21:12)
[2017-10-11] MEDS: SODIUM CHLORIDE 0.9% IV SCH ×3 (01:35→18:22)
[2017-10-11] MEDS: VANCOMYCIN IV SCH ×3 (01:35→18:22)
[2017-10-11] MEDS: Insulin Aspart 100 Units/ML 3 ML Pen SUBCUT SCH ×4 (06:46→21:12)
[2017-10-11] MEDS: metFORMIN 500 MG Tab PO SCH ×2 (06:46→17:33)
[2017-10-11] MEDS: Citalopram 20 MG Tab PO SCH (08:09)
[2017-10-11] MEDS: Saccharomyces Boulardii (Probiotic) 250 MG Cap PO SCH ×2 (08:09→21:12)
[2017-10-11] MEDS: Enoxaparin 40 MG/0.4 ML Syringe SUBCUT SCH (08:09)
[2017-10-11] MEDS: Hydrochlorothiazide 25 MG Tab PO SCH (08:09)
[2017-10-11] MEDS: Potassium Chloride 20 MEQ Tab.ER PO SCH ×2 (08:10→21:12)
[2017-10-11] MEDS: Lisinopril 20 MG Tab PO SCH (08:10)
[2017-10-11] MEDS: Pantoprazole 40 MG Vial IVPUSH SCH (08:10)
[2017-10-11] MEDS ORDERED: Magnesium Sulfate/Water 4 GM in Premix Bag 1 BAG IV ONE (12:44)
[2017-10-11] MEDS ORDERED: Acetaminophen 325 MG Tab PO PRN (12:45)
[2017-10-11] MEDS ORDERED: Acetaminophen/Butalbital/Caffeine 325-50-40 MG Tab PO PRN (12:46)
--- NOTE | 2017-10-11 12:47 | PCM.PN ---
- General Info Date of Service: 10/11/17 Functional Status: Reports: Pain Controlled, Tolerating Diet, Ambulating, Urinating - Review of Systems General: Reports: No Symptoms HEENT: Reports: No Symptoms Pulmonary: Reports: No Symptoms Cardiovascular: Reports: No Symptoms Gastrointestinal: Reports: No Symptoms Genitourinary: Reports: No Symptoms Musculoskeletal: Reports: No Symptoms Skin: Reports: No Symptoms Neurological: Reports: No Symptoms Psychiatric: Reports: No Symptoms - Patient Data Vitals - Most Recent: Last Vital Signs Temp 36.3 C 10/11/17 08:08 Pulse 62 10/11/17 08:08 Resp 20 10/11/17 08:08 BP 134/85 10/11/17 08:10 Pulse Ox 94 L 10/11/17 08:08 Weight - Most Recent: 186.835 kg I&O - Last 24 Hours: Intake & Output 10/10/17 10/11/17 10/11/17 22:59 06:59 14:59 Intake Total 1850 1000 120 Balance 1850 1000 120 Lab Results Last 24 Hours: Laboratory Results - last 24 hr 10/10/17 10/10/17 10/11/17 Range/Units 17:16 21:53 05:44 WBC 7.68 (4.23-9.07) K/mm3 RBC 4.50 L (4.63-6.08) M/mm3 Hgb 12.9 L (13.7-17.5) gm/L Hct 37.9 L (40.1-51.0) % MCV 84.2 (79.0-92.2) fl MCH 28.7 (25.7-32.2) pg MCHC 34.0 (32.2-35.5) g/dl RDW Std Deviation 41.5 (35.1-43.9) fL Plt Count 212 (163-337) K/mm3 MPV 10.7 (9.4-12.3) fl Neut % (Auto) 53.0 (34.0-67.9) % Lymph % (Auto) 34.6 (21.8-53.1) % Garfield % (Auto) 9.0 (5.3-12.2) % Eos % (Auto) 2.1 (0.8-7.0) Baso % (Auto) 0.1 (0.1-1.2) % Neut # (Auto) 4.07 (1.78-5.38) K/mm3 Lymph # (Auto) 2.66 (1.32-3.57) K/mm3 Garfield # (Auto) 0.69 (0.30-0.82) K/mm3 Eos # (Auto) 0.16 (0.04-0.54) K/mm3 Baso # (Auto) 0.01 (0.01-0.08) K/mm3 Sodium (136-145) mEq/L Potassium (3.5-5.1) mEq/L Chloride (98-107) mEq/L Carbon Dioxide (21-32) mEq/L Anion Gap (5-15) BUN (7-18) mg/dL Creatinine (0.7-1.3) mg/dL Est Cr Clr Drug Dosing mL/min Estimated GFR (MDRD) (>60) mL/min BUN/Creatinine Ratio (14-18) Glucose (74-106) mg/dL POC Glucose 164 H 150 H (70-105) mg/dL Calcium (8.5-10.1) mg/dL Magnesium (1.8-2.4) mg/dl C-Reactive Protein (<1.0) mg/dL Vancomycin Trough (10.0-20.0) 10/11/17 10/11/17 10/11/17 Range/Units 05:44 06:46 09:30 WBC (4.23-9.07) K/mm3 RBC (4.63-6.08) M/mm3 Hgb (13.7-17.5) gm/L Hct (40.1-51.0) % MCV (79.0-92.2) fl MCH (25.7-32.2) pg MCHC (32.2-35.5) g/dl RDW Std Deviation (35.1-43.9) fL Plt Count (163-337) K/mm3 MPV (9.4-12.3) fl Neut % (Auto) (34.0-67.9) % Lymph % (Auto) (21.8-53.1) % Garfield % (Auto) (5.3-12.2) % Eos % (Auto) (0.8-7.0) Baso % (Auto) (0.1-1.2) % Neut # (Auto) (1.78-5.38) K/mm3 Lymph # (Auto) (1.32-3.57) K/mm3 Garfield # (Auto) (0.30-0.82) K/mm3 Eos # (Auto) (0.04-0.54) K/mm3 Baso # (Auto) (0.01-0.08) K/mm3 Sodium 138 (136-145) mEq/L Potassium 3.4 L (3.5-5.1) mEq/L Chloride 104 (98-107) mEq/L Carbon Dioxide 25 (21-32) mEq/L Anion Gap 12.4 (5-15) BUN 6 L (7-18) mg/dL Creatinine 0.8 (0.7-1.3) mg/dL Est Cr Clr Drug Dosing 137.42 mL/min Estimated GFR (MDRD) > 60 (>60) mL/min BUN/Creatinine Ratio 7.5 L (14-18) Glucose 136 H (74-106) mg/dL POC Glucose 134 H (70-105) mg/dL Calcium 8.9 (8.5-10.1) mg/dL Magnesium 1.5 L (1.8-2.4) mg/dl C-Reactive Protein 5.4 H* (<1.0) mg/dL Vancomycin Trough 14.0 (10.0-20.0) 10/11/17 Range/Units 10:59 WBC (4.23-9.07) K/mm3 RBC (4.63-6.08) M/mm3 Hgb (13.7-17.5) gm/L Hct (40.1-51.0) % MCV (79.0-92.2) fl MCH (25.7-32.2) pg MCHC (32.2-35.5) g/dl RDW Std Deviation (35.1-43.9) fL Plt Count (163-337) K/mm3 MPV (9.4-12.3) fl Neut % (Auto) (34.0-67.9) % Lymph % (Auto) (21.8-53.1) % Garfield % (Auto) (5.3-12.2) % Eos % (Auto) (0.8-7.0) Baso % (Auto) (0.1-1.2) % Neut # (Auto) (1.78-5.38) K/mm3 Lymph # (Auto) (1.32-3.57) K/mm3 Garfield # (Auto) (0.30-0.82) K/mm3 Eos # (Auto) (0.04-0.54) K/mm3 Baso # (Auto) (0.01-0.08) K/mm3 Sodium (136-145) mEq/L Potassium (3.5-5.1) mEq/L Chloride (98-107) mEq/L Carbon Dioxide (21-32) mEq/L Anion Gap (5-15) BUN (7-18) mg/dL Creatinine (0.7-1.3) mg/dL Est Cr Clr Drug Dosing mL/min Estimated GFR (MDRD) (>60) mL/min BUN/Creatinine Ratio (14-18) Glucose (74-106) mg/dL POC Glucose 162 H (70-105) mg/dL Calcium (8.5-10.1) mg/dL Magnesium (1.8-2.4) mg/dl C-Reactive Protein (<1.0) mg/dL Vancomycin Trough (10.0-20.0) Tir[place] Results Last 24 Hours: Microbiology 10/10/17 06:07 Aerobic Blood Culture - Preliminary Blood NO GROWTH AFTER 1 DAY Anaerobic Blood Culture - Preliminary NO GROWTH AFTER 1 DAY 10/08/17 06:50 Aerobic Blood Culture - Preliminary Blood - Venous - Lab Draw NO GROWTH AFTER 3 DAYS Anaerobic Blood Culture - Preliminary NO GROWTH AFTER 3 DAYS 10/08/17 06:35 Aerobic Blood Culture - Preliminary Blood - Venous NO GROWTH AFTER 3 DAYS Anaerobic Blood Culture - Preliminary NO GROWTH AFTER 3 DAYS Med Orders - Current: Current Medications Acetaminophen (Tylenol) 650 mg PO Q6H PRN PRN Reason: Pain (Mild 1-3)/fever Acetaminophen/Butalbital/Caffeine (Fioricet 325-50-40 Mg) 1 tab PO Q8H PRN PRN Reason: Headache Hydrocodone Bitart/Acetaminophen ([place] 325-5 Mg) 1 tab PO Q4H PRN PRN Reason: Pain (moderate 4-6) Bisacodyl (Dulcolax) 5 mg PO DAILY PRN PRN Reason: Constipation Citalopram Hydrobromide (Celexa) 20 mg PO DAILY [facility] Last Admin: 10/11/17 08:09 Dose: 20 mg Docusate Sodium (Colace) 100 mg PO BID PRN PRN Reason: Constipation Enoxaparin Sodium (Lovenox) 40 mg SUBCUT DAILY [facility] Last Admin: 10/11/17 08:09 Dose: 40 mg Hydrochlorothiazide (Hydrochlorothiazide) 25 mg PO DAILY [facility] Last Admin: 10/11/17 08:09 Dose: 25 mg Ampicillin Sodium/Sulbactam (Sodium 3 gm/ Sodium Chloride) 100 mls @ 200 mls/ hr IV Q6H [facility] Last Admin: 10/11/17 06:48 Dose: 200 mls/hr Vancomycin HCl 2 gm/Vancomycin HCl 250 mg/ Sodium Chloride 500 mls @ 250 mls/ hr IV Q8H [facility] Last Admin: 10/11/17 10:26 Dose: 250 mls/hr Magnesium Sulfate 4 gm/ Premix 100 mls @ 300 mls/hr IV ONETIME ONE Stop: 10/11/17 12:45 Insulin Aspart (Novolog) 0 unit SUBCUT QIDACANDBED [facility]; Protocol Last Admin: 10/11/17 12:22 Dose: 2 unit Lisinopril (Prinivil) 20 mg PO DAILY [facility] Last Admin: 10/11/17 08:10 Dose: 20 mg Magnesium Hydroxide (Milk Of Magnesia) 30 ml PO Q12H PRN PRN Reason: Constipation Magnesium Oxide (Magnesium Oxide) 800 mg PO DAILY [facility] Metformin HCl (Glucophage) 1,000 mg PO BIDMEALS [facility] Last Admin: 10/11/17 06:46 Dose: 1,000 mg Ondansetron HCl (Zofran Odt) 4 mg PO Q4H PRN PRN Reason: nausea, able to take PO Ondansetron HCl (Zofran) 4 mg IV Q4H PRN PRN Reason: Nausea/Vomiting Pantoprazole Sodium (Protonix Iv) 40 mg IVPUSH DAILY [facility] Last Admin: 10/11/17 08:10 Dose: 40 mg Polyethylene Glycol (Miralax) 17 gm PO DAILY PRN PRN Reason: Constipation Potassium Chloride (Klor-Con M20) 40 meq PO BID [facility] Stop: 10/11/17 21:01 Last Admin: 10/11/17 08:10 Dose: 40 meq Saccharomyces Boulardii (Florastor) 250 mg PO BID [facility] Last Admin: 10/11/17 08:09 Dose: 250 mg Senna/Docusate Sodium (Senna Plus) 1 tab PO BID PRN PRN Reason: Constipation Temazepam (Restoril) 7.5 mg PO BEDTIME PRN PRN Reason: Sleep Vancomycin HCl (Pharmacy To Dose - Vancomycin) 0 dose .XX ASDIRECTED PRN PRN Reason: RX TO DOSE VANCOMYCIN Discontinued Medications Acetaminophen (Tylenol) 975 mg PO NOW ONE Stop: 10/08/17 08:16 Last Admin: 10/08/17 08:25 Dose: 975 mg Acetaminophen (Tylenol) 650 mg PO Q4H PRN PRN Reason: Pain (Mild 1-3)/fever Last Admin: 10/09/17 13:56 Dose: 650 mg Acetaminophen/Butalbital/Caffeine (Fioricet 325-50-40 Mg) 2 tab PO Q8H PRN PRN Reason: Headache Last Admin: 10/10/17 00:57 Dose: 2 tab Vancomycin HCl 2 gm/ Sodium (Chloride) 250 mls @ 250 mls/hr IV ONETIME ONE Stop: 10/08/17 09:09 Last Admin: 10/08/17 12:33 Dose: Not Given Sodium Chloride (Normal Saline) 1,000 mls @ 1,000 mls/hr IV ONETIME ONE Stop: 10/08/17 09:11 Last Admin: 10/08/17 08:24 Dose: 1,000 mls/hr Vancomycin HCl 2 gm/ Sodium (Chloride) 500 mls @ 250 mls/hr IV ONETIME ONE Stop: 10/08/17 10:29 Last Admin: 10/08/17 08:29 Dose: 250 mls/hr Sodium Chloride (Normal Saline) 4,300 mls @ 1,000 mls/hr IV ONETIME ONE Stop: 10/08/17 12:44 Last Admin: 10/08/17 14:01 Dose: Not Given Sodium Chloride (Normal Saline) 1,000 mls @ 999 mls/hr IV Q1H [facility] Stop: 10/08/17 17:44 Last Admin: 10/08/17 18:20 Dose: 999 mls/hr Magnesium Sulfate 4 gm/ Premix 100 mls @ 25 mls/hr IV ONETIME ONE Stop: 10/08/17 17:59 Last Admin: 10/08/17 17:20 Dose: 25 mls/hr Vancomycin HCl 2 gm/ Sodium (Chloride) 500 mls @ 250 mls/hr IV Q12H [facility] Last Admin: 10/08/17 19:45 Dose: Not Given Vancomycin HCl 2 gm/ Sodium (Chloride) 500 mls @ 250 mls/hr IV Q12H [facility] Last Admin: 10/09/17 09:16 Dose: 250 mls/hr Sodium Chloride (Normal Saline) 1,000 mls @ 125 mls/hr IV ASDIRECTED [facility] Last Admin: 10/09/17 10:24 Dose: 125 mls/hr Vancomycin HCl 2 gm/ Sodium (Chloride) 500 mls @ 250 mls/hr IV Q8H [facility] Last Admin: 10/10/17 10:00 Dose: Not Given Ampicillin Sodium/Sulbactam (Sodium 3 gm/ Sodium Chloride) 100 mls @ 200 mls/ hr IV Q6H [facility] Last Admin: 10/10/17 06:37 Dose: 200 mls/hr Vancomycin HCl 2 gm/Vancomycin HCl 250 mg/ Sodium Chloride 500 mls @ 250 mls/ hr IV Q8H [facility] Stop: 10/10/17 13:30 Last Admin: 10/10/17 10:22 Dose: 250 mls/hr Magnesium Sulfate 4 gm/ Premix 100 mls @ 300 mls/hr IV ONETIME ONE Stop: 10/10/17 10:03 Last Admin: 10/10/17 10:08 Dose: Not Given Magnesium Sulfate 2 gm/ Premix 50 mls @ 50 mls/hr IV Q1H [facility] Stop: 10/10/17 12:14 Last Admin: 10/10/17 11:29 Dose: 50 mls/hr Ibuprofen (Motrin) 400 mg PO ONETIME ONE Stop: 10/08/17 17:01 Last Admin: 10/08/17 17:27 Dose: 400 mg Lisinopril (Prinivil) 20 mg PO DAILY [facility] Magnesium Sulfate (Pharmacy To Dose - Magnesium Replacement) 0 dose .XX ASDIRECTED PRN PRN Reason: RX TO WATCH MAG LEVELS Morphine Sulfate (Morphine) 2 mg IVPUSH Q2H PRN PRN Reason: Pain (severe 7-10) Stop: 10/09/17 14:30 Potassium Chloride (Pharmacy To Dose - Potassium Replacement) 0 dose .XX ASDIRECTED PRN PRN Reason: RX TO WATCH K LEVELS Potassium Chloride (Klor-Con M20) 60 meq PO ONETIME ONE Stop: 10/08/17 14:01 Last Admin: 10/08/17 14:01 Dose: 60 meq Vancomycin HCl (Vancocin) Confirm Administered Dose 2 gm .ROUTE .STK-MED ONE Stop: 10/08/17 08:15 Last Admin: 10/08/17 12:32 Dose: Not Given - Exam Quality Assessment: DVT Prophylaxis General: Alert, Oriented, Cooperative, No Acute Distress HEENT: Pupils Equal, Pupils Reactive, EOMI Neck: Trachea Midline, No JVD Lungs: Normal Respiratory Effort, Decreased Breath Sounds Cardiovascular: Regular Rate, Regular Rhythm GI/Abdominal Exam: Normal Bowel Sounds, Soft, Non-Tender, No Organomegaly, No Distention (Male) Exam: Deferred Back Exam: Normal Inspection Extremities: Normal Inspection, Slow Capillary Refill, Increased Warmth, Redness Skin: Warm Wound/Incisions: Erythema Improving Neurological: No New Focal Deficit, Normal Gait, Normal Speech Psy/Mental Status: Alert, Normal Affect, Normal Mood - Problem List & Annotations (1) Morbid obesity SNOMED Code(s): 937246563 Code(s): E66.01 - MORBID (SEVERE) OBESITY DUE TO EXCESS CALORIES Status: Acute Current Visit: Yes (2) Cellulitis SNOMED Code(s): 357626647 Code(s): L03.90 - CELLULITIS, UNSPECIFIED Status: Acute Priority: High Current Visit: Yes Qualifiers: Site of cellulitis: extremity Site of cellulitis of extremity: lower extremity Laterality: left Qualified Code(s): L03.116 - Cellulitis of left lower limb (3) Electrolyte abnormality SNOMED Code(s): 648828090 Code(s): E87.8 - OTH DISORDERS OF ELECTROLYTE AND FLUID BALANCE, NEC Status : Acute Priority: High Current Visit: Yes (4) Diabetes mellitus SNOMED Code(s): 77508403 Code(s): E11.9 - TYPE 2 DIABETES MELLITUS WITHOUT COMPLICATIONS Status: Chronic Priority: Medium Current Visit: Yes Qualifiers: Diabetes mellitus type: type 2 Diabetes mellitus supervisor intermediates insulin use: without supervisor intermediates use Diabetes mellitus complication status: with kidney complications Diabetes mellitus complication detail: with microalbuminuria Qualified Code(s): E11.29 - Type 2 diabetes mellitus with other diabetic kidney complication; R80.9 - Proteinuria, unspecified (5) HTN (hypertension) SNOMED Code(s): 85723683 Code(s): I10 - ESSENTIAL (PRIMARY) HYPERTENSION Status: Chronic Priority : Medium Current Visit: No Qualifiers: Hypertension type: unspecified Qualified Code(s): I10 - Essential (primary ) hypertension (6) Sleep apnea SNOMED Code(s): 81599826 Code(s): G47.30 - SLEEP APNEA, UNSPECIFIED Status: Chronic Priority: Low Current Visit: No Qualifiers: Sleep apnea type: unspecified type Qualified Code(s): G47.30 - Sleep apnea , unspecified - Problem List Review Problem List Initiated/Reviewed/Updated: Yes - My Orders Last 24 Hours: My Active Orders 10/10/17 13:00 Ampicillin/Sulbactam Na [Unasyn] 3 gm Sodium Chloride 0.9% [Normal Saline] 100 ml IV Q6H 10/11/17 11:05 Consult to Disability Rater [CONS] Routine 10/11/17 12:44 Magnesium Sulfate/Water [Magnesium Sulfate 4 GM in Water 100 ML] 4 gm Premix Bag 1 bag IV ONETIME 10/11/17 12:45 Acetaminophen [Tylenol] 650 mg PO Q6H PRN 10/11/17 12:46 Acetaminophen/Butalbital/Caff [Fioricet 325-50-40 MG] 1 tab PO Q8H PRN 10/11/17 14:00 Magnesium Oxide 800 mg PO DAILY - Plan Plan:: I/P: Cellulitis of Left Lower leg Vanco/Unasyn -Risk factors: h/o of chronic cellulitis of left leg (annually since 2006), Uncontrolled DM2 -Fever 101.4, Tachycardia 114, Tachypnea 18, WBC 21.31 -Vanco and IVF in ED--> continue -Lactic Acid 2.9-->1.8 -Sepsis work up; will add Unasyn -Monitor Tension Headache/Neck pain--resolved -Risk factors: h/o of this type of STACK before -01/24 pain, Nausea; Denies aura, sensitivity to light -States it is behind his head and on the left side of his neck -CT head in ED--> no acute abnormalities -PT evaluation--> Recommend outpt PT -Pain medication PRN Electrolyte Abnormalities -Mg (depeleted)/K -Replenish as needed Chronic: DM2 with Microalbuminuria -Urine Microalbumin 806.4, eGFR >60 -Glucose 280 in ED -Monitor Glucose QID -Order A1C -Insulin sliding scale PRN -Continue at home Metformin -ADA diet -IVF -F/U with PCP HTN--> Continue at home Lisinopril and HCTZ Depression--> continue at home Lexapro GERD Morbidly obese, BMI 56.1--> dietary consult for DM/wt loss Plan: Med surg He remains stable and continues to improve clinically Other orders as indicated above Routine AM labs ADA diet Consult dietary/DM ed pending DVT Prophylaxis: Lovenox GI Prophylaxis: Protonix Ambulated as tolerated Code Status:Full Code; PCP: Corona Kwon at [facility] in [facility] for OM
[2017-10-11] MEDS: Magnesium Oxide 400 MG Tab PO SCH (13:18)
[2017-10-12] MEDS: Ampicillin/Sulbactam Na 3 GM in Sodium Chloride 0.9% 100 ML IV SCH ×4 (00:32→20:24)
[2017-10-12] MEDS: SODIUM CHLORIDE 0.9% IV SCH ×3 (01:20→17:37)
[2017-10-12] MEDS: VANCOMYCIN IV SCH ×3 (01:20→17:37)
[2017-10-12] MEDS: metFORMIN 500 MG Tab PO SCH ×2 (06:57→17:40)
[2017-10-12] MEDS: Insulin Aspart 100 Units/ML 3 ML Pen SUBCUT SCH ×4 (06:57→21:34)
[2017-10-12] MEDS ORDERED: Magnesium Oxide 400 MG Tab PO ONE (09:04)
[2017-10-12] MEDS: Pantoprazole 40 MG Vial IVPUSH SCH (09:58)
[2017-10-12] MEDS: Saccharomyces Boulardii (Probiotic) 250 MG Cap PO SCH ×2 (10:08→20:23)
[2017-10-12] MEDS: Lisinopril 20 MG Tab PO SCH (10:08)
[2017-10-12] MEDS: Hydrochlorothiazide 25 MG Tab PO SCH (10:08)
[2017-10-12] MEDS: Citalopram 20 MG Tab PO SCH (10:08)
[2017-10-12] MEDS: Enoxaparin 40 MG/0.4 ML Syringe SUBCUT SCH (10:08)
[2017-10-12] MEDS: Magnesium Oxide 400 MG Tab PO SCH (10:08)
--- NOTE | 2017-10-12 14:36 | PCM.PN ---
- General Info Date of Service: 10/12/17 Admission Dx/Problem (Free Text): Admission Diagnosis/Problem Admission Diagnosis/Problem Cellulitis Functional Status: Reports: Pain Controlled, Tolerating Diet, Ambulating, Urinating, New Symptoms - Review of Systems General: Reports: No Symptoms HEENT: Reports: No Symptoms. Denies: Headaches Pulmonary: Reports: No Symptoms Cardiovascular: Reports: No Symptoms Gastrointestinal: Reports: No Symptoms Genitourinary: Reports: No Symptoms Musculoskeletal: Reports: No Symptoms Skin: Reports: Other (erythema, improving) Neurological: Reports: No Symptoms Psychiatric: Reports: No Symptoms - Patient Data Vitals - Most Recent: Last Vital Signs Temp 97.5 F 10/12/17 08:08 Pulse 60 10/12/17 08:08 Resp 18 10/12/17 08:08 BP 155/88 H 10/12/17 10:08 Pulse Ox 96 10/12/17 08:08 Weight - Most Recent: 408 lb 9.6 oz I&O - Last 24 Hours: Intake & Output 10/11/17 10/12/17 10/12/17 22:59 06:59 14:59 Intake Total 2100 1200 240 Balance 2100 1200 240 Lab Results Last 24 Hours: Laboratory Results - last 24 hr 10/11/17 10/11/17 10/12/17 Range/Units 16:20 20:58 06:03 WBC 7.91 (4.23-9.07) K/mm3 RBC 4.73 (4.63-6.08) M/mm3 Hgb 13.5 L (13.7-17.5) gm/L Hct 39.9 L (40.1-51.0) % MCV 84.4 (79.0-92.2) fl MCH 28.5 (25.7-32.2) pg MCHC 33.8 (32.2-35.5) g/dl RDW Std Deviation 41.9 (35.1-43.9) fL Plt Count 222 (163-337) K/mm3 MPV 10.1 (9.4-12.3) fl Neut % (Auto) 50.9 (34.0-67.9) % Lymph % (Auto) 34.6 (21.8-53.1) % Morris % (Auto) 10.4 (5.3-12.2) % Eos % (Auto) 1.9 (0.8-7.0) Baso % (Auto) 0.4 (0.1-1.2) % Neut # (Auto) 4.03 (1.78-5.38) K/mm3 Lymph # (Auto) 2.74 (1.32-3.57) K/mm3 Morris # (Auto) 0.82 (0.30-0.82) K/mm3 Eos # (Auto) 0.15 (0.04-0.54) K/mm3 Baso # (Auto) 0.03 (0.01-0.08) K/mm3 Manual Slide Review Abnormal smear Sodium (136-145) mEq/L Potassium (3.5-5.1) mEq/L Chloride (98-107) mEq/L Carbon Dioxide (21-32) mEq/L Anion Gap (5-15) BUN (7-18) mg/dL Creatinine (0.7-1.3) mg/dL Est Cr Clr Drug Dosing mL/min Estimated GFR (MDRD) (>60) mL/min BUN/Creatinine Ratio (14-18) Glucose (74-106) mg/dL POC Glucose 174 H 176 H (70-105) mg/dL Hemoglobin A1c (4.50-6.20) % Calcium (8.5-10.1) mg/dL Magnesium (1.8-2.4) mg/dl C-Reactive Protein (<1.0) mg/dL 10/12/17 10/12/17 10/12/17 Range/Units 06:03 06:03 06:56 WBC (4.23-9.07) K/mm3 RBC (4.63-6.08) M/mm3 Hgb (13.7-17.5) gm/L Hct (40.1-51.0) % MCV (79.0-92.2) fl MCH (25.7-32.2) pg MCHC (32.2-35.5) g/dl RDW Std Deviation (35.1-43.9) fL Plt Count (163-337) K/mm3 MPV (9.4-12.3) fl Neut % (Auto) (34.0-67.9) % Lymph % (Auto) (21.8-53.1) % Morris % (Auto) (5.3-12.2) % Eos % (Auto) (0.8-7.0) Baso % (Auto) (0.1-1.2) % Neut # (Auto) (1.78-5.38) K/mm3 Lymph # (Auto) (1.32-3.57) K/mm3 Morris # (Auto) (0.30-0.82) K/mm3 Eos # (Auto) (0.04-0.54) K/mm3 Baso # (Auto) (0.01-0.08) K/mm3 Manual Slide Review Sodium 138 (136-145) mEq/L Potassium 3.7 (3.5-5.1) mEq/L Chloride 103 (98-107) mEq/L Carbon Dioxide 26 (21-32) mEq/L Anion Gap 12.7 (5-15) BUN 7 (7-18) mg/dL Creatinine 0.8 (0.7-1.3) mg/dL Est Cr Clr Drug Dosing 137.42 mL/min Estimated GFR (MDRD) > 60 (>60) mL/min BUN/Creatinine Ratio 8.8 L (14-18) Glucose 132 H (74-106) mg/dL POC Glucose 144 H (70-105) mg/dL Hemoglobin A1c 10.70 H (4.50-6.20) % Calcium 9.1 (8.5-10.1) mg/dL Magnesium 1.5 L (1.8-2.4) mg/dl C-Reactive Protein 2.7 H* (<1.0) mg/dL [place] Results Last 24 Hours: Microbiology 10/10/17 06:07 Aerobic Blood Culture - Preliminary Blood NO GROWTH AFTER 2 DAYS Anaerobic Blood Culture - Preliminary NO GROWTH AFTER 2 DAYS 10/08/17 06:50 Aerobic Blood Culture - Preliminary Blood - Venous - Lab Draw NO GROWTH AFTER 4 DAYS Anaerobic Blood Culture - Preliminary NO GROWTH AFTER 4 DAYS 10/08/17 06:35 Aerobic Blood Culture - Preliminary Blood - Venous NO GROWTH AFTER 4 DAYS Anaerobic Blood Culture - Preliminary NO GROWTH AFTER 4 DAYS Med Orders - Current: Current Medications Acetaminophen (Tylenol) 650 mg PO Q6H PRN PRN Reason: Pain (Mild 1-3)/fever Acetaminophen/Butalbital/Caffeine (Fioricet 325-50-40 Mg) 1 tab PO Q8H PRN PRN Reason: Headache Hydrocodone Bitart/Acetaminophen ([place] 325-5 Mg) 1 tab PO Q4H PRN PRN Reason: Pain (moderate 4-6) Bisacodyl (Dulcolax) 5 mg PO DAILY PRN PRN Reason: Constipation Citalopram Hydrobromide (Celexa) 20 mg PO DAILY [facility] Last Admin: 10/12/17 10:08 Dose: 20 mg Docusate Sodium (Colace) 100 mg PO BID PRN PRN Reason: Constipation Enoxaparin Sodium (Lovenox) 40 mg SUBCUT DAILY [facility] Last Admin: 10/12/17 10:08 Dose: 40 mg Hydralazine HCl (Apresoline) 10 mg IVPUSH Q4H PRN PRN Reason: Hypertension Hydrochlorothiazide (Hydrochlorothiazide) 25 mg PO DAILY [facility] Last Admin: 10/12/17 10:08 Dose: 25 mg Ampicillin Sodium/Sulbactam (Sodium 3 gm/ Sodium Chloride) 100 mls @ 200 mls/ hr IV Q6H [facility] Last Admin: 10/12/17 13:10 Dose: 200 mls/hr Vancomycin HCl 2 gm/Vancomycin HCl 250 mg/ Sodium Chloride 500 mls @ 250 mls/ hr IV Q8H [facility] Last Admin: 10/12/17 09:58 Dose: 250 mls/hr Insulin Aspart (Novolog) 0 unit SUBCUT QIDACANDBED [facility]; Protocol Last Admin: 10/12/17 13:10 Dose: Not Given Lisinopril (Prinivil) 20 mg PO DAILY [facility] Last Admin: 10/12/17 10:08 Dose: 20 mg Magnesium Hydroxide (Milk Of Magnesia) 30 ml PO Q12H PRN PRN Reason: Constipation Magnesium Oxide (Magnesium Oxide) 800 mg PO DAILY [facility] Last Admin: 10/12/17 10:08 Dose: 800 mg Metformin HCl (Glucophage) 1,000 mg PO BIDMEALS [facility] Last Admin: 10/12/17 06:57 Dose: 1,000 mg Ondansetron HCl (Zofran Odt) 4 mg PO Q4H PRN PRN Reason: nausea, able to take PO Ondansetron HCl (Zofran) 4 mg IV Q4H PRN PRN Reason: Nausea/Vomiting Pantoprazole Sodium (Protonix) 40 mg PO DAILY [facility] Polyethylene Glycol (Miralax) 17 gm PO DAILY PRN PRN Reason: Constipation Saccharomyces Boulardii (Florastor) 250 mg PO BID [facility] Last Admin: 10/12/17 10:08 Dose: 250 mg Senna/Docusate Sodium (Senna Plus) 1 tab PO BID PRN PRN Reason: Constipation Temazepam (Restoril) 7.5 mg PO BEDTIME PRN PRN Reason: Sleep Vancomycin HCl (Pharmacy To Dose - Vancomycin) 0 dose .XX ASDIRECTED PRN PRN Reason: RX TO DOSE VANCOMYCIN Discontinued Medications Acetaminophen (Tylenol) 975 mg PO NOW ONE Stop: 10/08/17 08:16 Last Admin: 10/08/17 08:25 Dose: 975 mg Acetaminophen (Tylenol) 650 mg PO Q4H PRN PRN Reason: Pain (Mild 1-3)/fever Last Admin: 10/09/17 13:56 Dose: 650 mg Acetaminophen/Butalbital/Caffeine (Fioricet 325-50-40 Mg) 2 tab PO Q8H PRN PRN Reason: Headache Last Admin: 10/10/17 00:57 Dose: 2 tab Vancomycin HCl 2 gm/ Sodium (Chloride) 250 mls @ 250 mls/hr IV ONETIME ONE Stop: 10/08/17 09:09 Last Admin: 10/08/17 12:33 Dose: Not Given Sodium Chloride (Normal Saline) 1,000 mls @ 1,000 mls/hr IV ONETIME ONE Stop: 10/08/17 09:11 Last Admin: 10/08/17 08:24 Dose: 1,000 mls/hr Vancomycin HCl 2 gm/ Sodium (Chloride) 500 mls @ 250 mls/hr IV ONETIME ONE Stop: 10/08/17 10:29 Last Admin: 10/08/17 08:29 Dose: 250 mls/hr Sodium Chloride (Normal Saline) 4,300 mls @ 1,000 mls/hr IV ONETIME ONE Stop: 10/08/17 12:44 Last Admin: 10/08/17 14:01 Dose: Not Given Sodium Chloride (Normal Saline) 1,000 mls @ 999 mls/hr IV Q1H [facility] Stop: 10/08/17 17:44 Last Admin: 10/08/17 18:20 Dose: 999 mls/hr Magnesium Sulfate 4 gm/ Premix 100 mls @ 25 mls/hr IV ONETIME ONE Stop: 10/08/17 17:59 Last Admin: 10/08/17 17:20 Dose: 25 mls/hr Vancomycin HCl 2 gm/ Sodium (Chloride) 500 mls @ 250 mls/hr IV Q12H [facility] Last Admin: 10/08/17 19:45 Dose: Not Given Vancomycin HCl 2 gm/ Sodium (Chloride) 500 mls @ 250 mls/hr IV Q12H [facility] Last Admin: 10/09/17 09:16 Dose: 250 mls/hr Sodium Chloride (Normal Saline) 1,000 mls @ 125 mls/hr IV ASDIRECTED [facility] Last Admin: 10/09/17 10:24 Dose: 125 mls/hr Vancomycin HCl 2 gm/ Sodium (Chloride) 500 mls @ 250 mls/hr IV Q8H [facility] Last Admin: 10/10/17 10:00 Dose: Not Given Ampicillin Sodium/Sulbactam (Sodium 3 gm/ Sodium Chloride) 100 mls @ 200 mls/ hr IV Q6H [facility] Last Admin: 10/10/17 06:37 Dose: 200 mls/hr Vancomycin HCl 2 gm/Vancomycin HCl 250 mg/ Sodium Chloride 500 mls @ 250 mls/ hr IV Q8H [facility] Stop: 10/10/17 13:30 Last Admin: 10/10/17 10:22 Dose: 250 mls/hr Magnesium Sulfate 4 gm/ Premix 100 mls @ 300 mls/hr IV ONETIME ONE Stop: 10/10/17 10:03 Last Admin: 10/10/17 10:08 Dose: Not Given Magnesium Sulfate 2 gm/ Premix 50 mls @ 50 mls/hr IV Q1H [facility] Stop: 10/10/17 12:14 Last Admin: 10/10/17 11:29 Dose: 50 mls/hr Magnesium Sulfate 4 gm/ Premix 100 mls @ 300 mls/hr IV ONETIME ONE Stop: 10/11/17 12:45 Last Admin: 10/11/17 13:57 Dose: 50 mls/hr Ibuprofen (Motrin) 400 mg PO ONETIME ONE Stop: 10/08/17 17:01 Last Admin: 10/08/17 17:27 Dose: 400 mg Lisinopril (Prinivil) 20 mg PO DAILY [facility] Magnesium Oxide (Magnesium Oxide) 400 mg PO ONETIME ONE Stop: 10/12/17 09:05 Last Admin: 10/12/17 10:08 Dose: 400 mg Magnesium Sulfate (Pharmacy To Dose - Magnesium Replacement) 0 dose .XX ASDIRECTED PRN PRN Reason: RX TO WATCH MAG LEVELS Morphine Sulfate (Morphine) 2 mg IVPUSH Q2H PRN PRN Reason: Pain (severe 7-10) Stop: 10/09/17 14:30 Pantoprazole Sodium (Protonix Iv) 40 mg IVPUSH DAILY [facility] Last Admin: 10/12/17 09:58 Dose: 40 mg Potassium Chloride (Pharmacy To Dose - Potassium Replacement) 0 dose .XX ASDIRECTED PRN PRN Reason: RX TO WATCH K LEVELS Potassium Chloride (Klor-Con M20) 60 meq PO ONETIME ONE Stop: 10/08/17 14:01 Last Admin: 10/08/17 14:01 Dose: 60 meq Potassium Chloride (Klor-Con M20) 40 meq PO BID [facility] Stop: 10/11/17 21:01 Last Admin: 10/11/17 21:12 Dose: 40 meq Vancomycin HCl (Vancocin) Confirm Administered Dose 2 gm .ROUTE .STK-MED ONE Stop: 10/08/17 08:15 Last Admin: 10/08/17 12:32 Dose: Not Given - Exam Quality Assessment: DVT Prophylaxis General: Alert, Oriented, Cooperative, No Acute Distress HEENT: Pupils Equal, Pupils Reactive, EOMI, Mucous Membr. Moist/[place]ck: Supple Lungs: Clear to Auscultation, Normal Respiratory Effort Cardiovascular: Regular Rate, Regular Rhythm GI/Abdominal Exam: Normal Bowel Sounds, Soft, Non-Tender, No Organomegaly, No Distention, No Abnormal Bruit, No Mass, Pelvis Stable (Male) Exam: Deferred Back Exam: Normal Inspection, Full Range of Motion Extremities: Normal Inspection, Normal Range of Motion, Non-Tender, Normal Capillary Refill, Pedal Edema (left leg) Peripheral Pulses: 1+: Posterior Tibial (L), Posterior Tibial (R), Dorsalis Pedis (L), Dorsalis Pedis (R) Skin: Warm, Dry, Intact Wound/Incisions: Healing Well, No Drainage, Erythema Improving Neurological: No New Focal Deficit Psy/Mental Status: Alert, Normal Affect, Normal Mood - Problem List & Annotations (1) Cellulitis SNOMED Code(s): 844143101 Code(s): L03.90 - CELLULITIS, UNSPECIFIED Status: Acute Priority: High Current Visit: Yes Qualifiers: Site of cellulitis: extremity Site of cellulitis of extremity: lower extremity Laterality: left Qualified Code(s): L03.116 - Cellulitis of left lower limb (2) Sepsis SNOMED Code(s): 51575756 Code(s): A41.9 - SEPSIS, UNSPECIFIED ORGANISM Status: Acute Priority: High Current Visit: Yes Qualifiers: Sepsis type: sepsis due to unspecified organism Qualified Code(s): A41.9 - Sepsis, unspecified organism (3) Diabetes mellitus SNOMED Code(s): 00933059 Code(s): E11.9 - TYPE 2 DIABETES MELLITUS WITHOUT COMPLICATIONS Status: Chronic Priority: Medium Current Visit: Yes Qualifiers: Diabetes mellitus type: type 2 Diabetes mellitus termite technician insulin use: without usp use Diabetes mellitus complication status: with kidney complications Diabetes mellitus complication detail: with microalbuminuria Qualified Code(s): E11.29 - Type 2 diabetes mellitus with other diabetic kidney complication; R80.9 - Proteinuria, unspecified (4) HTN (hypertension) SNOMED Code(s): 52849638 Code(s): I10 - ESSENTIAL (PRIMARY) HYPERTENSION Status: Chronic Priority : Medium Current Visit: No Qualifiers: Hypertension type: unspecified Qualified Code(s): I10 - Essential (primary ) hypertension (5) Sleep apnea SNOMED Code(s): 02958700 Code(s): G47.30 - SLEEP APNEA, UNSPECIFIED Status: Chronic Priority: Low Current Visit: No Qualifiers: Sleep apnea type: unspecified type Qualified Code(s): G47.30 - Sleep apnea , unspecified (6) Headache SNOMED Code(s): 85290351 Code(s): R51 - HEADACHE Status: Acute Priority: High Current Visit: Yes Qualifiers: Headache type: tension-type Headache chronicity pattern: acute headache Intractability: not intractable Qualified Code(s): G44.209 - Tension-type headache, unspecified, not intractable (7) Neck pain on left side SNOMED Code(s): 81293156 Code(s): M54.2 - CERVICALGIA Status: Acute Priority: Medium Current Visit: Yes (8) Electrolyte abnormality SNOMED Code(s): 898053225 Code(s): E87.8 - OTH DISORDERS OF ELECTROLYTE AND FLUID BALANCE, NEC Status : Acute Priority: High Current Visit: Yes - Problem List Review Problem List Initiated/Reviewed/Updated: Yes - My Orders Last 24 Hours: My Active Orders 10/12/17 09:49 hydrALAZINE [Apresoline] 10 mg IVPUSH Q4H PRN 10/13/17 05:11 BASIC METABOLIC PANEL,BMP [CHEM] AM C-REACTIVE PROTEIN [CHEM] AM CBC WITH AUTO DIFF [HEME] AM MAGNESIUM [CHEM] AM 10/13/17 09:00 Pantoprazole [ProTONIX] 40 mg PO DAILY - Plan Plan:: I/P: Cellulitis of Left Lower leg Vanco/Unasyn -Risk factors: h/o of chronic cellulitis of left leg (annually since 2006), Uncontrolled DM2 -Fever 101.4, Tachycardia 114, Tachypnea 18, WBC 21.31--> improved -Vanco and IVF in ED--> continue, add Unasyn -Lactic Acid 2.9-->1.8 -Sepsis work up -Check LLE for OM -Monitor Electrolyte Abnormalities -Mg (depeleted)/K -Replenish as needed Resolved: Tension Headache/Neck pain--resolved -Risk factors: h/o of this type of STACK before -01/24 pain, Nausea; Denies aura, sensitivity to light -States it is behind his head and on the left side of his neck -CT head in ED--> no acute abnormalities -PT evaluation--> Recommend outpt PT -Pain medication PRN Chronic: DM2 with Microalbuminuria -Urine Microalbumin 806.4, eGFR >60 -Glucose 280 in ED -Monitor Glucose QID -Order A1C -Insulin sliding scale PRN -Continue at home Metformin -ADA diet -IVF -F/U with PCP HTN--> Continue at home Lisinopril and HCTZ Depression--> continue at home Lexapro GERD Morbidly obese, BMI 56.1--> dietary consult for DM/wt loss Plan: Med surg He remains stable and continues to improve clinically Other orders as indicated above Routine AM labs ADA diet Consult dietary/DM ed pending DVT Prophylaxis: Lovenox GI Prophylaxis: Protonix Ambulated as tolerated Code Status:Full Code; PCP: Corona Kwon at [facility] in [place] Most likely D/C Thursday pending clinical disposition
[2017-10-12] MEDS: hydrALAZINE 20 MG/ML SDV IVPUSH PRN (22:47)
[2017-10-13] MEDS ORDERED: metFORMIN 500 MG Tab PO SCH
[2017-10-13] MEDS: Ampicillin/Sulbactam Na 3 GM in Sodium Chloride 0.9% 100 ML IV SCH ×2 (01:50→07:05)
[2017-10-13] MEDS: VANCOMYCIN IV SCH ×2 (02:36→09:33)
[2017-10-13] MEDS: SODIUM CHLORIDE 0.9% IV SCH ×2 (02:36→09:33)
[2017-10-13] MEDS: hydrALAZINE 20 MG/ML SDV IVPUSH PRN (05:06)
[2017-10-13] MEDS: Insulin Aspart 100 Units/ML 3 ML Pen SUBCUT SCH ×2 (06:39→12:08)
[2017-10-13] MEDS: metFORMIN 500 MG Tab PO SCH (07:05)
[2017-10-13] MEDS ORDERED: Pantoprazole 40 MG Tab.CR PO SCH (09:00)
[2017-10-13] MEDS: Saccharomyces Boulardii (Probiotic) 250 MG Cap PO SCH (09:37)
[2017-10-13] MEDS: Lisinopril 20 MG Tab PO SCH (09:37)
[2017-10-13] MEDS: Hydrochlorothiazide 25 MG Tab PO SCH (09:37)
[2017-10-13] MEDS: Citalopram 20 MG Tab PO SCH (09:38)
[2017-10-13] MEDS: Magnesium Oxide 400 MG Tab PO SCH (09:38)
[2017-10-13] MEDS: Enoxaparin 40 MG/0.4 ML Syringe SUBCUT SCH (09:39)
[2017-10-13] MEDS: Magnesium Sulfate/Water 2 GM in Premix Bag 1 BAG IV SCH ×2 (10:32→12:09)
--- NOTE | 2017-10-13 12:43 | PCM.DCSUM1 ---
Discharge Summary - Hospital Course HPI Initial Comments: 36-year-old male presents emergency room via EMS not feeling right. He has had a fever that developed this evening. This started after drinking some water the patient works as a DJ and wonders if something was added to his glass of water because immediately after drinking the water he started feeling unusual. Initially he hinted that he had not been feeling well with some flulike symptoms for the last couple of weeks but with further clarification he changes this to the abrupt onset stated above. The patient has a headache neck pain generally achy all over he gets intermittent bouts of cellulitis in his left lower leg this is mildly erythematous and swelling little bit. Patient is a poorly controlled type II diabetic. - Discharge Data Discharge Date: 10/13/17 (ADMIT 10/08/17) Discharge Disposition: Home, Self-Care 01 Condition: Good - Discharge Diagnosis/Problem(s) (1) Cellulitis SNOMED Code(s): 207149621 ICD Code: L03.90 - CELLULITIS, UNSPECIFIED Status: Acute Priority: High Current Visit: Yes Qualifiers: Site of cellulitis: extremity Site of cellulitis of extremity: lower extremity Laterality: left Qualified Code(s): L03.116 - Cellulitis of left lower limb (2) Sepsis SNOMED Code(s): 71607017 ICD Code: A41.9 - SEPSIS, UNSPECIFIED ORGANISM Status: Acute Priority: High Current Visit: Yes Qualifiers: Sepsis type: sepsis due to unspecified organism Qualified Code(s): A41.9 - Sepsis, unspecified organism (3) Diabetes mellitus SNOMED Code(s): 78658296 ICD Code: E11.9 - TYPE 2 DIABETES MELLITUS WITHOUT COMPLICATIONS Status: Chronic Priority: Medium Current Visit: Yes Qualifiers: Diabetes mellitus type: type 2 Diabetes mellitus intermodal customer service insulin use: without intermodal customer service use Diabetes mellitus complication status: with kidney complications Diabetes mellitus complication detail: with microalbuminuria Qualified Code(s): E11.29 - Type 2 diabetes mellitus with other diabetic kidney complication; R80.9 - Proteinuria, unspecified (4) HTN (hypertension) SNOMED Code(s): 73163329 ICD Code: I10 - ESSENTIAL (PRIMARY) HYPERTENSION Status: Chronic Priority : Medium Current Visit: No Qualifiers: Hypertension type: unspecified Qualified Code(s): I10 - Essential (primary ) hypertension (5) Sleep apnea SNOMED Code(s): 18980841 ICD Code: G47.30 - SLEEP APNEA, UNSPECIFIED Status: Chronic Priority: Low Current Visit: No Qualifiers: Sleep apnea type: unspecified type Qualified Code(s): G47.30 - Sleep apnea , unspecified (6) Headache SNOMED Code(s): 79227857 ICD Code: R51 - HEADACHE Status: Acute Priority: High Current Visit: Yes Qualifiers: Headache type: tension-type Headache chronicity pattern: acute headache Intractability: not intractable Qualified Code(s): G44.209 - Tension-type headache, unspecified, not intractable (7) Neck pain on left side SNOMED Code(s): 33628333 ICD Code: M54.2 - CERVICALGIA Status: Acute Priority: Medium Current Visit: Yes (8) Electrolyte abnormality SNOMED Code(s): 056971217 ICD Code: E87.8 - OTH DISORDERS OF ELECTROLYTE AND FLUID BALANCE, NEC Status: Acute Priority: High Current Visit: Yes Problem Details: Hypomagnesemia - Patient Summary/Data Operative Procedure(s) Performed: none Complications: none Consults: Consultations 10/08/17 14:25 Consult to Diabetic Nurse Specialist [CONS] Routine Consult to Spiritual Care [CONS] Routine PT Evaluation and Treatment [CONS] Routine 10/11/17 11:05 Consult to Supervisor Accounts Receivable [CONS] Routine 10/13/17 10:52 Consult to Diabetic Nurse Specialist [CONS] Routine 10/13/17 11:41 Consult to Case Management [CONS] Routine Labs Pending at D/C: none Recommended Follow-up Testing/Procedures: Follow up with PCP, Dr. Corona Rai at [facility], in 7-10 days: -Recheck Labs: Magnesium, BP, A1C -Check on cellulitis, weight -May need a change HCTZ due to hypomagnesemia -Tobacco cessation (chewing tobacco) Planned Operative Procedure(s) after DC: none Hospital Course: I/P: Cellulitis of Left Lower leg- Improving -Risk factors: h/o of chronic cellulitis of left leg (annually since 2006), Uncontrolled DM2 -Fever 101.4, Tachycardia 114, Tachypnea 18, WBC 21.31--> resolved -Vanco and IVF in ED--> continue, add Unasyn--> D/C today -Send home with 1 week Augmentin -Lactic Acid 2.9-->1.8 -Sepsis work up -Blood cultures negative -Check LLE for OM with PCP Electrolyte Abnormalities- Improving -Most likely 2/2 HCTZ -Mg 0.9-->1.4 -Replenish as needed--> Send home with magnesium supplement -Follow up w/ PCP, may need change in medication Resolved: Tension Headache/Neck pain--resolved -Risk factors: h/o of this type of STACK before -01/24 pain, Nausea; Denies aura, sensitivity to light -States it is behind his head and on the left side of his neck -CT head in ED--> no acute abnormalities -PT evaluation--> Recommend outpt PT -Pain medication PRN Chronic: DM2 with Microalbuminuria -Urine Microalbumin 806.4, eGFR >60 -Glucose 280 in ED -Monitor Glucose QID -A1C--> 10.7 -Insulin sliding scale PRN -Continue at home Metformin -ADA diet -IVF -F/U with PCP Tobacco User -Chewing tobacco only, never smoked -Tobacco cessation practical counseling was given -He would like to quit, but does not want a prescription -F/U with PCP for further help with quitting HTN--> Continue at home Lisinopril and HCTZ--> Take BP TID at home; Norvasc 5mg QHS Depression--> continue at home Lexapro GERD Morbidly obese, BMI 56.1--> dietary consult for DM/wt loss Plan: Med surg He remains stable and continues to improve clinically Other orders as indicated above Routine AM labs ADA diet Consult dietary/DM ed pending DVT Prophylaxis: Lovenox GI Prophylaxis: Protonix Ambulated as tolerated Code Status:Full Code; PCP: Corona Gaytan at [facility] in [place] D/C jesse Today Bert has recovered quite well after being admitted for cellulitis of the left lower leg. Labs are trending down and his symptoms have improved. His left leg still has some erythema, but he states that this is "normal" for him. Unfortunately he has multiple comorbidities that also need to be addressed with his PCP. His A1C was elevated at 10.7, Mg was low (lowest 0.9), lipids were slightly elevated (triglycerides 171 and LDL 106), HDL was low at 26, his blood pressure was elevated (highest 156/91) - these should all be rechecked and worked up further with his primary care provider. He may need to be taken off of the HCTZ as this may be the cause of the hypomagnesemia- for now I have sent him home with Magnesium Oxide 400mg BID x 7 days. I have also sent him home with Norvasc 5mg QHS x14 days for HTN. He was also discharged home on Augmentin 875 BID x 7 days for completion of cellulitis treatment. He will be discharged home today. He should follow-up with his primary care provider in 7-10 days. He has been advised to take his BP TID with a prescribed BP machine. He was also educated on the DASH diet, ADA diet and advised to check his blood sugars at home. I have also sent a prescription for compression hose for his lymphedema. I advised him that weight loss would help greatly with a lot of these issues and encourage him to exercise 3-5 times per week. - Patient Instructions Diet: Diabetic Diet (and DASH diet) Activity: As Tolerated Driving: May Drive Today Showering/Bathing: May Shower Notify Provider of: Fever, Increased Pain, Swelling and Redness, Drainage, Nausea and/or Vomiting - Discharge Plan Prescriptions/Med Rec: amLODIPine Besylate [Norvasc] 5 mg PO QPM #14 tablet Amoxicillin/Potassium Clav [Augmentin 875-125 Tablet] 1 each PO BID 7 Days #14 tablet Blood Pressure Kit-Extra Large [Blood Pressure Monitor] 1 each MC TID #1 kit Magnesium Oxide 400 mg PO BID #14 tab Home Medications: Home Meds Escitalopram Oxalate [Lexapro] 10 mg PO DAILY 10/08/17 [History] Lisinopril/Hydrochlorothiazide [Lisinopril-Hctz 20-25 mg Tab] 1 each PO DAILY [History] Omeprazole Magnesium [Prilosec Otc] 20 mg PO DAILY 10/08/17 [History] metFORMIN HCl [Metformin HCl] 1,000 mg PO BID 10/08/17 [History] Amoxicillin/Potassium Clav [Augmentin 875-125 Tablet] 1 each PO BID 7 Days #14 tablet 10/13/17 [Rx] Blood Pressure Kit-Extra Large [Blood Pressure Monitor] 1 each MC TID #1 kit [Rx] Magnesium Oxide 400 mg PO BID #14 tab 10/13/17 [Rx] amLODIPine Besylate [Norvasc] 5 mg PO QPM #14 tablet 10/13/17 [Rx] Patient Handouts: How to Take Your Blood Pressure, [id number], Hypomagnesemia , Cellulitis, Adult, [id number]-[id number], Type 2 Diabetes Mellitus, Self Care, Adult, [id number]-[id number], Hypertension, [id number]-Sxug, Managing Your Hypertension, Lipid Profile Test Referrals: Corona Gaytan MD [Physician] - - Discharge Summary/Plan Comment DC Time >30 min.: Yes (40) - General Info Date of Service: 10/13/17 Admission Dx/Problem (Free Text: Admission Diagnosis/Problem Admission Diagnosis/Problem Cellulitis Subjective Update: In to see Bert today. He is sitting up in bed. Overall he is doing quite well. He has no complaints. He has been sleeping well. Good appetite. Ambulating. No fever, chills, headache, pain. Urinating. No concerns from nursing. We discussed tobacco cessation (he is a tobacco chewer, never smoker)- he does not want a prescription at this time, DASH and ADA diet, weight loss, checking blood glucose at home as well as blood pressure. Explained that the hypomagnesemia may be caused by the HCTZ and he should f/u with his PCP in 7-10 days for these issues. Will be DCd back to home today with Augmentin 7 days for completion of cellulitis treatment, magnesium oxide 7 days for hypomagnesemia, Norvasc for hypertension. Functional Status: Reports: Pain Controlled, Tolerating Diet, Ambulating, Urinating - Review of Systems General: Reports: No Symptoms. Denies: Fever, Chills HEENT: Reports: No Symptoms Pulmonary: Reports: No Symptoms Cardiovascular: Reports: Orthopnea (h/o sleep apnea), Edema (left lower leg swelling still apparent). Denies: Chest Pain, Dyspnea on Exertion Gastrointestinal: Reports: No Symptoms. Denies: Diarrhea, Nausea, Vomiting Genitourinary: Reports: No Symptoms Musculoskeletal: Reports: No Symptoms Skin: Reports: Dryness (has peeling bilaterally in lower legs 2/2 sunburn), Other (erythema improving in the left lower leg) Neurological: Reports: No Symptoms Psychiatric: Reports: No Symptoms - Patient Data Vitals - Most Recent: Last Vital Signs Temp 98.8 F 10/13/17 08:15 Pulse 71 10/13/17 08:15 Resp 18 10/13/17 08:15 BP 149/93 H 10/13/17 09:37 Pulse Ox 97 10/13/17 08:15 Weight - Most Recent: 406 lb 7 oz I&O - Last 24 hours: Intake & Output 10/12/17 10/13/17 10/13/17 22:59 06:59 14:59 Intake Total 1390 1100 120 Balance 1390 1100 120 Lab Results - Last 24 hrs: Laboratory Results - last 24 hr 10/12/17 10/12/17 10/12/17 Range/Units 13:08 17:36 21:01 WBC (4.23-9.07) K/mm3 RBC (4.63-6.08) M/mm3 Hgb (13.7-17.5) gm/L Hct (40.1-51.0) % MCV (79.0-92.2) fl MCH (25.7-32.2) pg MCHC (32.2-35.5) g/dl RDW Std Deviation (35.1-43.9) fL Plt Count (163-337) K/mm3 MPV (9.4-12.3) fl Neut % (Auto) (34.0-67.9) % Lymph % (Auto) (21.8-53.1) % Logan % (Auto) (5.3-12.2) % Eos % (Auto) (0.8-7.0) Baso % (Auto) (0.1-1.2) % Neut # (Auto) (1.78-5.38) K/mm3 Lymph # (Auto) (1.32-3.57) K/mm3 Logan # (Auto) (0.30-0.82) K/mm3 Eos # (Auto) (0.04-0.54) K/mm3 Baso # (Auto) (0.01-0.08) K/mm3 Manual Slide Review Sodium (136-145) mEq/L Potassium (3.5-5.1) mEq/L Chloride (98-107) mEq/L Carbon Dioxide (21-32) mEq/L Anion Gap (5-15) BUN (7-18) mg/dL Creatinine (0.7-1.3) mg/dL Est Cr Clr Drug Dosing mL/min Estimated GFR (MDRD) (>60) mL/min BUN/Creatinine Ratio (14-18) Glucose (74-106) mg/dL POC Glucose 132 H 166 H 133 H (70-105) mg/dL Calcium (8.5-10.1) mg/dL Magnesium (1.8-2.4) mg/dl C-Reactive Protein (<1.0) mg/dL Triglycerides (<150) mg/dL Cholesterol (<200) mg/dL LDL Cholesterol Direct (<100) mg/dL HDL Cholesterol (40-59) mg/dL 10/13/17 10/13/17 10/13/17 Range/Units 06:06 06:06 06:06 WBC 8.64 (4.23-9.07) K/mm3 RBC 5.04 (4.63-6.08) M/mm3 Hgb 14.4 (13.7-17.5) gm/L Hct 42.2 (40.1-51.0) % MCV 83.7 (79.0-92.2) fl MCH 28.6 (25.7-32.2) pg MCHC 34.1 (32.2-35.5) g/dl RDW Std Deviation 41.0 (35.1-43.9) fL Plt Count 259 (163-337) K/mm3 MPV 10.4 (9.4-12.3) fl Neut % (Auto) 55.4 (34.0-67.9) % Lymph % (Auto) 33.0 (21.8-53.1) % Logan % (Auto) 7.5 (5.3-12.2) % Eos % (Auto) 2.0 (0.8-7.0) Baso % (Auto) 0.2 (0.1-1.2) % Neut # (Auto) 4.79 (1.78-5.38) K/mm3 Lymph # (Auto) 2.85 (1.32-3.57) K/mm3 Logan # (Auto) 0.65 (0.30-0.82) K/mm3 Eos # (Auto) 0.17 (0.04-0.54) K/mm3 Baso # (Auto) 0.02 (0.01-0.08) K/mm3 Manual Slide Review Normal smear Sodium 137 (136-145) mEq/L Potassium 3.5 (3.5-5.1) mEq/L Chloride 102 (98-107) mEq/L Carbon Dioxide 26 (21-32) mEq/L Anion Gap 12.5 (5-15) BUN 7 (7-18) mg/dL Creatinine 0.9 (0.7-1.3) mg/dL Est Cr Clr Drug Dosing 122.15 mL/min Estimated GFR (MDRD) > 60 (>60) mL/min BUN/Creatinine Ratio 7.8 L (14-18) Glucose 126 H (74-106) mg/dL POC Glucose (70-105) mg/dL Calcium 9.3 (8.5-10.1) mg/dL Magnesium 1.4 L (1.8-2.4) mg/dl C-Reactive Protein 1.5 H* (<1.0) mg/dL Triglycerides 171 H (<150) mg/dL Cholesterol 155 (<200) mg/dL LDL Cholesterol Direct 106 H* (<100) mg/dL HDL Cholesterol 26.0 L (40-59) mg/dL 10/13/17 10/13/17 Range/Units 06:18 11:34 WBC (4.23-9.07) K/mm3 RBC (4.63-6.08) M/mm3 Hgb (13.7-17.5) gm/L Hct (40.1-51.0) % MCV (79.0-92.2) fl MCH (25.7-32.2) pg MCHC (32.2-35.5) g/dl RDW Std Deviation (35.1-43.9) fL Plt Count (163-337) K/mm3 MPV (9.4-12.3) fl Neut % (Auto) (34.0-67.9) % Lymph % (Auto) (21.8-53.1) % Logan % (Auto) (5.3-12.2) % Eos % (Auto) (0.8-7.0) Baso % (Auto) (0.1-1.2) % Neut # (Auto) (1.78-5.38) K/mm3 Lymph # (Auto) (1.32-3.57) K/mm3 Logan # (Auto) (0.30-0.82) K/mm3 Eos # (Auto) (0.04-0.54) K/mm3 Baso # (Auto) (0.01-0.08) K/mm3 Manual Slide Review Sodium (136-145) mEq/L Potassium (3.5-5.1) mEq/L Chloride (98-107) mEq/L Carbon Dioxide (21-32) mEq/L Anion Gap (5-15) BUN (7-18) mg/dL Creatinine (0.7-1.3) mg/dL Est Cr Clr Drug Dosing mL/min Estimated GFR (MDRD) (>60) mL/min BUN/Creatinine Ratio (14-18) Glucose (74-106) mg/dL POC Glucose 125 H 115 H (70-105) mg/dL Calcium (8.5-10.1) mg/dL Magnesium (1.8-2.4) mg/dl C-Reactive Protein (<1.0) mg/dL Triglycerides (<150) mg/dL Cholesterol (<200) mg/dL LDL Cholesterol Direct (<100) mg/dL HDL Cholesterol (40-59) mg/dL DEVAUGHN Results - Last 24 hrs: Microbiology 10/10/17 06:07 Aerobic Blood Culture - Preliminary Blood NO GROWTH AFTER 3 DAYS Anaerobic Blood Culture - Preliminary NO GROWTH AFTER 3 DAYS 10/08/17 06:50 Aerobic Blood Culture - Preliminary Blood - Venous - Lab Draw NO GROWTH AFTER 5 DAYS Anaerobic Blood Culture - Preliminary NO GROWTH AFTER 5 DAYS 10/08/17 06:35 Aerobic Blood Culture - Preliminary Blood - Venous NO GROWTH AFTER 5 DAYS Anaerobic Blood Culture - Preliminary NO GROWTH AFTER 5 DAYS Med Orders - Current: Current Medications Acetaminophen (Tylenol) 650 mg PO Q6H PRN PRN Reason: Pain (Mild 1-3)/fever Acetaminophen/Butalbital/Caffeine (Fioricet 325-50-40 Mg) 1 tab PO Q8H PRN PRN Reason: Headache Hydrocodone Bitart/Acetaminophen ([place] 325-5 Mg) 1 tab PO Q4H PRN PRN Reason: Pain (moderate 4-6) Amoxicillin/Clavulanate Potassium (Augmentin 875 Mg/125 Mg) 1 tab PO BID [facility] Bisacodyl (Dulcolax) 5 mg PO DAILY PRN PRN Reason: Constipation Citalopram Hydrobromide (Celexa) 20 mg PO DAILY [facility] Last Admin: 10/13/17 09:38 Dose: 20 mg Docusate Sodium (Colace) 100 mg PO BID PRN PRN Reason: Constipation Enoxaparin Sodium (Lovenox) 40 mg SUBCUT DAILY [facility] Last Admin: 10/13/17 09:39 Dose: 40 mg Hydralazine HCl (Apresoline) 10 mg IVPUSH Q4H PRN PRN Reason: Hypertension Last Admin: 10/13/17 05:06 Dose: 10 mg Hydrochlorothiazide (Hydrochlorothiazide) 25 mg PO DAILY [facility] Last Admin: 10/13/17 09:37 Dose: 25 mg Magnesium Sulfate 2 gm/ Premix 50 mls @ 25 mls/hr IV Q2H [facility] Stop: 10/13/17 13:49 Last Admin: 10/13/17 12:09 Dose: 25 mls/hr Insulin Aspart (Novolog) 0 unit SUBCUT QIDACANDBED [facility]; Protocol Last Admin: 10/13/17 12:08 Dose: Not Given Lisinopril (Prinivil) 20 mg PO DAILY [facility] Last Admin: 10/13/17 09:37 Dose: 20 mg Magnesium Hydroxide (Milk Of Magnesia) 30 ml PO Q12H PRN PRN Reason: Constipation Magnesium Oxide (Magnesium Oxide) 800 mg PO DAILY [facility] Last Admin: 10/13/17 09:38 Dose: 800 mg Metformin HCl (Glucophage) 1,000 mg PO BIDMEALS [facility] Last Admin: 10/13/17 07:05 Dose: 1,000 mg Ondansetron HCl (Zofran Odt) 4 mg PO Q4H PRN PRN Reason: nausea, able to take PO Ondansetron HCl (Zofran) 4 mg IV Q4H PRN PRN Reason: Nausea/Vomiting Pantoprazole Sodium (Protonix) 40 mg PO DAILY [facility] Last Admin: 10/13/17 09:38 Dose: 40 mg Polyethylene Glycol (Miralax) 17 gm PO DAILY PRN PRN Reason: Constipation Saccharomyces Boulardii (Florastor) 250 mg PO BID [facility] Last Admin: 10/13/17 09:37 Dose: 250 mg Senna/Docusate Sodium (Senna Plus) 1 tab PO BID PRN PRN Reason: Constipation Temazepam (Restoril) 7.5 mg PO BEDTIME PRN PRN Reason: Sleep Discontinued Medications Acetaminophen (Tylenol) 975 mg PO NOW ONE Stop: 10/08/17 08:16 Last Admin: 10/08/17 08:25 Dose: 975 mg Acetaminophen (Tylenol) 650 mg PO Q4H PRN PRN Reason: Pain (Mild 1-3)/fever Last Admin: 10/09/17 13:56 Dose: 650 mg Acetaminophen/Butalbital/Caffeine (Fioricet 325-50-40 Mg) 2 tab PO Q8H PRN PRN Reason: Headache Last Admin: 10/10/17 00:57 Dose: 2 tab Vancomycin HCl 2 gm/ Sodium (Chloride) 250 mls @ 250 mls/hr IV ONETIME ONE Stop: 10/08/17 09:09 Last Admin: 10/08/17 12:33 Dose: Not Given Sodium Chloride (Normal Saline) 1,000 mls @ 1,000 mls/hr IV ONETIME ONE Stop: 10/08/17 09:11 Last Admin: 10/08/17 08:24 Dose: 1,000 mls/hr Vancomycin HCl 2 gm/ Sodium (Chloride) 500 mls @ 250 mls/hr IV ONETIME ONE Stop: 10/08/17 10:29 Last Admin: 10/08/17 08:29 Dose: 250 mls/hr Sodium Chloride (Normal Saline) 4,300 mls @ 1,000 mls/hr IV ONETIME ONE Stop: 10/08/17 12:44 Last Admin: 10/08/17 14:01 Dose: Not Given Sodium Chloride (Normal Saline) 1,000 mls @ 999 mls/hr IV Q1H [facility] Stop: 10/08/17 17:44 Last Admin: 10/08/17 18:20 Dose: 999 mls/hr Magnesium Sulfate 4 gm/ Premix 100 mls @ 25 mls/hr IV ONETIME ONE Stop: 10/08/17 17:59 Last Admin: 10/08/17 17:20 Dose: 25 mls/hr Vancomycin HCl 2 gm/ Sodium (Chloride) 500 mls @ 250 mls/hr IV Q12H [facility] Last Admin: 10/08/17 19:45 Dose: Not Given Vancomycin HCl 2 gm/ Sodium (Chloride) 500 mls @ 250 mls/hr IV Q12H [facility] Last Admin: 10/09/17 09:16 Dose: 250 mls/hr Sodium Chloride (Normal Saline) 1,000 mls @ 125 mls/hr IV ASDIRECTED [facility] Last Admin: 10/09/17 10:24 Dose: 125 mls/hr Vancomycin HCl 2 gm/ Sodium (Chloride) 500 mls @ 250 mls/hr IV Q8H [facility] Last Admin: 10/10/17 10:00 Dose: Not Given Ampicillin Sodium/Sulbactam (Sodium 3 gm/ Sodium Chloride) 100 mls @ 200 mls/ hr IV Q6H [facility] Last Admin: 10/10/17 06:37 Dose: 200 mls/hr Vancomycin HCl 2 gm/Vancomycin HCl 250 mg/ Sodium Chloride 500 mls @ 250 mls/ hr IV Q8H [facility] Stop: 10/10/17 13:30 Last Admin: 10/10/17 10:22 Dose: 250 mls/hr Magnesium Sulfate 4 gm/ Premix 100 mls @ 300 mls/hr IV ONETIME ONE Stop: 10/10/17 10:03 Last Admin: 10/10/17 10:08 Dose: Not Given Magnesium Sulfate 2 gm/ Premix 50 mls @ 50 mls/hr IV Q1H [facility] Stop: 10/10/17 12:14 Last Admin: 10/10/17 11:29 Dose: 50 mls/hr Ampicillin Sodium/Sulbactam (Sodium 3 gm/ Sodium Chloride) 100 mls @ 200 mls/ hr IV Q6H [facility] Last Admin: 10/13/17 07:05 Dose: 200 mls/hr Vancomycin HCl 2 gm/Vancomycin HCl 250 mg/ Sodium Chloride 500 mls @ 250 mls/ hr IV Q8H [facility] Last Admin: 10/13/17 09:33 Dose: 250 mls/hr Magnesium Sulfate 4 gm/ Premix 100 mls @ 300 mls/hr IV ONETIME ONE Stop: 10/11/17 12:45 Last Admin: 10/11/17 13:57 Dose: 50 mls/hr Ibuprofen (Motrin) 400 mg PO ONETIME ONE Stop: 10/08/17 17:01 Last Admin: 10/08/17 17:27 Dose: 400 mg Lisinopril (Prinivil) 20 mg PO DAILY [facility] Magnesium Oxide (Magnesium Oxide) 400 mg PO ONETIME ONE Stop: 10/12/17 09:05 Last Admin: 10/12/17 10:08 Dose: 400 mg Magnesium Sulfate (Pharmacy To Dose - Magnesium Replacement) 0 dose .XX ASDIRECTED PRN PRN Reason: RX TO WATCH MAG LEVELS Morphine Sulfate (Morphine) 2 mg IVPUSH Q2H PRN PRN Reason: Pain (severe 7-10) Stop: 10/09/17 14:30 Pantoprazole Sodium (Protonix Iv) 40 mg IVPUSH DAILY [facility] Last Admin: 10/12/17 09:58 Dose: 40 mg Potassium Chloride (Pharmacy To Dose - Potassium Replacement) 0 dose .XX ASDIRECTED PRN PRN Reason: RX TO WATCH K LEVELS Potassium Chloride (Klor-Con M20) 60 meq PO ONETIME ONE Stop: 10/08/17 14:01 Last Admin: 10/08/17 14:01 Dose: 60 meq Potassium Chloride (Klor-Con M20) 40 meq PO BID [facility] Stop: 10/11/17 21:01 Last Admin: 10/11/17 21:12 Dose: 40 meq Vancomycin HCl (Vancocin) Confirm Administered Dose 2 gm .ROUTE .STK-MED ONE Stop: 10/08/17 08:15 Last Admin: 10/08/17 12:32 Dose: Not Given Vancomycin HCl (Pharmacy To Dose - Vancomycin) 0 dose .XX ASDIRECTED PRN PRN Reason: RX TO DOSE VANCOMYCIN - Exam Quality Assessment: Reports: DVT Prophylaxis. Denies: Supplemental Oxygen General: Reports: Alert, Oriented, Cooperative, No Acute Distress HEENT: Reports: Pupils Equal, Pupils Reactive, EOMI, Mucous Membr. Moist/[place] Neck: Reports: Supple Lungs: Reports: Clear to Auscultation, Normal Respiratory Effort Cardiovascular: Reports: Regular Rate, Regular Rhythm GI/Abdominal Exam: Normal Bowel Sounds, Soft, Non-Tender, No Organomegaly, No Distention, No Abnormal Bruit, No Mass, Pelvis Stable (Male) Exam: Deferred Rectal (Males) Exam: Deferred Back Exam: Reports: Normal Inspection, Full Range of Motion Extremities: Normal Inspection, Normal Range of Motion, Non-Tender, Normal Capillary Refill, Pedal Edema (left lower extremity; no pitting, lymphedema), Redness (improving left lower leg). No: Increased Warmth Skin: Reports: Warm, Dry, Intact, Other (erythema improving in left lower leg; skin peeling improved in lower legs bilaterally) Wound/Incisions: Reports: No Drainage, Erythema Improving Neurological: Reports: No New Focal Deficit Psy/Mental Status: Reports: Alert, Normal Affect, Normal Mood
[2017-10-13] MEDS ORDERED: Amoxicillin/Clavulanate K 875-125 MG Tab PO SCH (21:00)
== END 2017-10-13 15:54 | disposition home or self-care (01) | DRG 872 ==
LOC: JD.ED 05:27 → JD.MS 09:21 → MERGE 09:21
PROVIDERS: ADMIT Internal Medicine; ATTEND Internal Medicine
DX: A41.9 Sepsis, unspecified organism (principal); L03.116 Cellulitis of left lower limb; Z68.43 Body mass index [BMI] 50.0-59.9, adult; E66.01 Morbid (severe) obesity due to excess calories; E11.65 Type 2 diabetes mellitus with hyperglycemia; I10 Essential (primary) hypertension; K21.9 Gastro-esophageal reflux disease without esophagitis; G47.30 Sleep apnea, unspecified; E87.8 Other disorders of electrolyte and fluid balance, not elsewhere classified; R80.9 Proteinuria, unspecified; K44.9 Diaphragmatic hernia without obstruction or gangrene; G44.209 Tension-type headache, unspecified, not intractable; M54.2 Cervicalgia; F32.9 Major depressive disorder, single episode, unspecified; Z88.8 Allergy status to other drugs, medicaments and biological substances; Z79.899 Other long term (current) drug therapy; Z79.84 Long term (current) use of oral hypoglycemic drugs
CPT/HCPCS: 36415; 70450; 70450-26; 71045; 71045-26; 72125; 72125-26; 80048; 80053; 80061; 80202; 80306; 81001; 82009; 82044; 82962; 83036; 83605; 83735; 84439; 84443; 85007; 85025; 85027; 85379; 85610; 85730; 86140; 87040; 87641; 93005; 96365; 97161-GP; 97535-GP; 99285-25; A9270; A9270-GY; C9113; G0480; J0295; J0360; J1650; J1815-GY; J3370; J3475; J7030; J7040

== ENCOUNTER 2024-12-08 23:07 | Emergency (ER) | payer BC ==
[2024-12-09] MEDS ORDERED: Sodium Chloride 0.9% 10 ML Syringe FLUSH PRN (00:34)
[2024-12-09 00:40] LABS: BASOPHILS ABSOLUTE AUTO 0.0 K/mm3 (0.0-0.2); BASOPHILS PERCENT AUTO 0.4 % (0.0-1.0); EOSINOPHILS ABSOLUTE AUTO 0.1 K/mm3 (0.0-0.4); EOSINOPHILS PERCENT AUTO 1.1 % (0.0-6.0); IMMATURE GRAN ABSOLUTE AUTO 0.03 K/mm3 (0.00-0.05); IMMATURE GRAN PERCENT AUTO 0.3 % (0.0-0.4); LYMPHOCYTES ABSOLUTE AUTO 3.5 K/mm3 (1.0-4.8); LYMPHOCYTES PERCENT AUTO 33.2 % (24.0-44.0); MEAN PLATELET VOLUME 10.4 fl (9.4-12.4); MONOCYTES ABSOLUTE AUTO 1.0 K/mm3 (0.0-0.8); MONOCYTES PERCENT AUTO 9.3 % (0.0-8.0); NEUTROPHILS ABSOLUTE AUTO 5.8 K/mm3 (1.8-7.7); NEUTROPHILS PERCENT AUTO 55.7 % (41.0-71.0); NRBC ABSOLUTE 0.00 (0.00-0.02); NRBC PERCENT 0.0 % (0.0-0.2); PLATELET COUNT,PLT 238 K/mm3 (150-400); RED BLOOD CELL COUNT 5.11 M/mm3 (4.52-5.90); WHITE BLOOD CELL COUNT,WBC 10.39 K/mm3 (3.9-11.3)
[2024-12-09] MEDS: Iopamidol 612 MG/ML 100 ML Bottle IVPUSH ONE (00:51)
[2024-12-09] MEDS: Sodium Chloride 0.9% 10 ML Syringe FLUSH PRN (00:51)
[2024-12-09 01:02] LABS: A/G RATIO 1.2 (1-2); ALANINE AMINOTRANSFERASE,ALT 24.0 U/L (16-63); ASPARTATE AMNIOTRANSFERASE,AST 18.0 U/L (15-37); BILIRUBIN TOTAL 0.9 mg/dL (0.2-1.0); BLOOD UREA NITROGEN,BUN 26.0 mg/dL (7-18); CARBON DIOXIDE,CO2 26.0 mEq/L (21-32); CHLORIDE,CL 104.0 mEq/L (98-107); CREATININE 1.3 mg/dL (0.7-1.3); EST CRCL DRUG DOSING (CG) 77.93 mL/min; ESTIMATED GFR 69.0 mL/min (>60); GLUCOSE RANDOM 83.0 mg/dL (70-99); POTASSIUM,K 4.1 mEq/L (3.5-5.1); PROTEIN TOTAL,TP 7.4 g/dl (6.4-8.2); SODIUM,NA 140.0 mEq/L (136-145)
== END 2024-12-09 02:13 | disposition home or self-care (01) ==
LOC: JD.ED 23:07
DX: R22.0 Localized swelling, mass and lump, head (principal); I10 Essential (primary) hypertension; E11.9 Type 2 diabetes mellitus without complications; Z88.8 Allergy status to other drugs, medicaments and biological substances; Z79.84 Long term (current) use of oral hypoglycemic drugs; Z79.899 Other long term (current) drug therapy
CPT/HCPCS: 36415; 70488; 70491; 80053; 85025; 85652; 86140; 99284; Q9967